=== PATIENT | female | born 1950 | race Caucasian/White ===

== ENCOUNTER 2016-05-14 08:41 | Inpatient (IN) | payer MEDICARE ==
[2016-05-14] MEDS ORDERED: VANCOMYCIN HCL INJ 1000 MG VIAL IV ONE (09:20)
[2016-05-14] MEDS ORDERED: PIPERACILLIN/TAZOBACTAM 3.375 GM VIAL IV ONE (09:20)
[2016-05-14 09:29] LABS: ABSOLUTE BASOPHILS # (AUTO) 0.1 10^3/uL (0.0-0.2); ABSOLUTE EOSINOPHILS # (AUTO) 0.1 10^3/uL (0.0-0.6); ABSOLUTE LYMPHOCYTES (AUTO) 1.5 10^3/uL (0.5-4.7); ABSOLUTE MONOCYTES (AUTO) 1.4 10^3/uL (0.1-1.4); ABSOLUTE NEUT (AUTO) 11.6 10^3/uL (1.7-8.2); BASOPHILS % (AUTO) 0.5 % (0-2); EOSINOPHILS % (AUTO) 0.8 % (0-6); HEMATOCRIT 32.5 % (36.0-47.0); HEMOGLOBIN 10.5 g/dL (12.0-15.5); LYMPHOCYTES % (AUTO) 10.2 % (13-45); MEAN CORPUSCULAR HEMOGLOBIN 27.1 pg (27.0-33.4); MEAN CORPUSCULAR HGB CONC 32.3 g/dL (32.0-36.0); MEAN CORPUSCULAR VOLUME 84 fl (80-97); MONOCYTES % (AUTO) 9.4 % (3-13); RED BLOOD COUNT 3.87 10^6/uL (3.72-5.28); RED CELL DISTRIBUTION WIDTH 15.6 % (11.5-14.0); SEGMENTED NEUTROPHILS % (AUTO) 79.1 % (42-78); WHITE BLOOD COUNT 14.6 10^3/uL (4.0-10.5)
[2016-05-14 09:38] LABS: ALANINE AMINOTRANSFERASE 34 U/L (9-52); ALBUMIN 3.7 g/dL (3.5-5.0); ALKALINE PHOSPHATASE 164 U/L (38-126); ANION GAP 11 (5-19); ASPARTATE AMINO TRANSFERASE 68 U/L (14-36); BILIRUBIN,TOTAL 0.8 mg/dL (0.2-1.3); BLOOD UREA NITROGEN 16 mg/dL (7-20); CALCIUM 9.5 mg/dL (8.4-10.2); CARBON DIOXIDE 27 mmol/L (22-30); CHLORIDE 101 mmol/L (98-107); CREATINE KINASE 49 U/L (30-135); CREATININE RESULT 0.74 mg/dL (0.52-1.25); GLUCOSE 110 mg/dL (75-110); POTASSIUM 3.2 mmol/L (3.6-5.0); SODIUM 139.4 mmol/L (137-145); TOTAL PROTEIN 7.1 g/dL (6.3-8.2)
[2016-05-14] MEDS: NORMAL SALINE 1000 ML 1,000 ML IV PRN ×2 (09:49→11:01)
[2016-05-14 09:51] LABS: CREATINE KINASE MB < 0.22 ng/mL (<4.55); TROPONIN I < 0.012 ng/mL
--- NOTE | 2016-05-14 11:05 | ER Document Report ---
[id number] WEAKNESS Mode of Arrival: Medic Information source: Patient Notes: 66-year-old female presents with three-day duration of abdominal pain fevers and chills. Patient denies any shortness breath of to breathing TRAVEL OUTSIDE OF THE [place] IN LAST 30 DAYS: No - HPI Onset: Other - 3-4 day duration Onset/Duration: Persistent, Worse Quality of pain: Achy Severity: Mild Pain Level: 1 Associated symptoms: Other Exacerbated by: Denies Relieved by: Denies Similar symptoms previously: No Recently seen / treated by doctor: No - Related Data Allergies/Adverse Reactions: Penicillins Allergy (Verified 05/14/16 09:04) Past Medical History - Social History Smoking Status: Never Smoker Cigarette use (# per day): No Chew tobacco use (# tins/day): No Smoking Education Provided: No Family History: CAD, Other - Vascular disease, Alzheimer's - Past Medical History Cardiac Medical History: Reports: Hx Hypercholesterolemia, Hx Hypertension, Hx Peripheral Vascular Disease Neurological Medical History: Reports: Hx Cerebrovascular Accident, Hx Seizures - 1 seizure after one of her strokes approximately 2 years ago. None since. Psychiatric Medical History: Denies: Hx Depression Past Surgical History: Reports: Hx Abdominal Surgery - hernia repair, Hx Orthopedic Surgery - Carpal tunnel surgery - Immunizations Hx Diphtheria, Pertussis, Tetanus Vaccination: No Review of Systems - Review of Systems Notes: REVIEW OF SYSTEMS: CONSTITUTIONAL : Denies fever, chills, or sweats. Denies recent illness. EENT: Denies eye, ear, throat, or mouth pain or symptoms. Denies nasal or sinus congestion or discharge. Denies throat, tongue, or mouth swelling or difficulty swallowing. CARDIOVASCULAR: Denies chest pain. Denies palpitations or racing or irregular heart beat. Denies ankle edema. RESPIRATORY: Denies cough, cold, or chest congestion. Denies shortness of breath, difficulty breathing, or wheezing. GASTROINTESTINAL: Admits to abdominal pain GENITOURINARY: Denies difficulty urinating, painful urination, burning, frequency, blood in urine, or discharge. MUSCULOSKELETAL: Denies back or neck pain or stiffness. Denies joint pain or swelling. SKIN: Denies rash, lesions or sores. HEMATOLOGIC : Denies easy bruising or bleeding. LYMPHATIC: Denies swollen, enlarged glands. NEUROLOGICAL: Denies confusion or altered mental status. Denies passing out or loss of consciousness. Denies dizziness or lightheadedness. Denies headache. Denies weakness or paralysis or loss of use of either side. Denies problems with gait or speech. Denies sensory loss, numbness, or tingling. Denies seizures. PSYCHIATRIC: Denies anxiety or stress. Denies depression, suicidal ideation, or homicidal ideation. ALL OTHER SYSTEMS REVIEWED AND NEGATIVE. Dictation was performed using [employer] voice recognition software PHYSICAL EXAMINATION: GENERAL: Well-appearing, well-nourished and in no acute distress. HEAD: Atraumatic, normocephalic. EYES: Pupils equal round and reactive to light, extraocular movements intact, sclera anicteric, conjunctiva are normal. ENT: Nares patent, oropharynx clear without exudates. Moist mucous membranes. NECK: Normal range of motion, supple without lymphadenopathy LUNGS: Breath sounds clear to auscultation bilaterally and equal. No wheezes rales or rhonchi. HEART: Regular rate and rhythm without murmurs ABDOMEN: Midline surgical incision noted erythematous with fluctuance measuring 6 x 4 cm tender to palpation no drainage Musculoskeletal: Normal range of motion, no pitting or edema. No cyanosis. NEUROLOGICAL: Cranial nerves grossly intact. Normal speech, normal gait. Normal sensory, motor exams PSYCH: Normal mood, normal affect. SKIN: Midline incision with erythema Physical Exam - Vital signs Vitals: Temp 98.5 F 05/14/16 09:02 Course - Re-evaluation Re-evalutation: 05/14/16 11:10 dr amos consulted for intra-abdominal abscess 05/14/16 11:55 Dr amos will admit for intrabdominal abscess, iv fluids and antibiotics already given CT is consistent with 2 separate abscesses appears more superficial one deep 05/14/16 16:07 - Vital Signs Vital signs: Temp Pulse Resp BP Pulse Ox 97.9 F 90 14 96/42 L 97 05/14/16 15:18 05/14/16 15:18 05/14/16 15:18 05/14/16 15:18 05/14/16 15:18 - Laboratory Result Diagrams: 05/14/16 08:45 05/14/16 08:45 Laboratory results interpreted by me: 05/14/16 05/14/16 05/14/16 08:45 08:45 12:00 WBC 14.6 H Hgb 10.5 L Hct 32.5 L RDW 15.6 H Seg Neutrophils % 79.1 H Lymphocytes % 10.2 L Absolute Neutrophils 11.6 H Potassium 3.2 L AST 68 H Alkaline Phosphatase 164 H Urine Blood SMALL H Ur Leukocyte Esterase SMALL H - Diagnostic Test Radiology reviewed: Image reviewed, Reports reviewed Discharge - Discharge Clinical Impression: Intra-abdominal abscess, Speech and language deficit, late effect of cerebrovascular disease Abdominal pain Qualifiers: Abdominal location: epigastric Qualified Code(s): R10.13 - Epigastric pain Sepsis Qualifiers: Sepsis type: sepsis due to unspecified organism Qualified Code(s): A41.9 - Sepsis, unspecified organism Condition: Stable Disposition: ADMITTED INPATIENT Admitting Provider: Surgicalist Unit Admitted: Surgical Floor
[2016-05-14] MEDS ORDERED: MORPHINE SULFATE 10 MG/ML INJ IV ONE (11:10)
[2016-05-14] MEDS ORDERED: BUPIVACAINE HCL 0.25 % INJ/PF (2.5 MG/1 ML) 30 ML VIAL ONE (12:08)
--- NOTE | 2016-05-14 12:19 | PDOC H&P ---
History of Present Illness Admission Date/PCP: WILLY NEVAREZ MD History of Present Illness: MILY GONZALEZ is a 66 year old female Status post gastric ulcer perforation in the February of last year managed with Mian patch and drainage. Patient apparently did well up until several days ago when she began to have diminished appetite and some generalized malaise along with the upper abdominal pain. No nausea and no fever. Patient has not had a upper scope since her surgery. 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 Loss of her vision on the right side. She still has some expressive aphasia. Neurological Medical History: Reports: Seizures - 1 seizure after one of her strokes approximately 2 years ago. None since. GI Medical History: Reports: Other - Perforated gastric ulcer in February of last . Status post Mian patch and drainage. Psychiatric Medical History: Denies: Depression Past Surgical History Past Surgical History: Reports: Orthopedic Surgery - Carpal tunnel surgery, Other - Mian patch and the drainage for gastric ulcer perforation in 02/2016 Social History Information Source: Patient Smoking Status: Never Smoker Frequency of Alcohol Use: Rare Hx Recreational Drug Use: No Drugs: None Hx Prescription Drug Abuse: No Family History Family History: CAD, Other - Vascular disease, Alzheimer's Parental Family History Reviewed: No Children Family History Reviewed: No Sibling(s) Family History Reviewed.: No Medication/Allergy Home Medications: Amantadine HCl [Amantadine] 100 mg PO BID 01/05/15 Aspirin [Aspirin 81 mg Chewable Tablet] 81 mg PO DAILY 01/05/15 Atorvastatin Calcium [Lipitor 80 mg Tablet] 80 mg PO QHS 01/05/15 Folic Acid/Multivit-Minerals [One Daily Gummy Vites Gummie] 2 tab PO DAILY 01/05 Trazodone HCl [Desyrel 50 mg Tablet] 50 mg PO QHS 01/05/15 Acetaminophen [Tylenol 325 mg Tablet] 650 mg PO Q4HP PRN tablet 03/06/16 Docusate Sodium [Colace 100 mg Capsule] 100 mg PO BID capsule 03/06/16 Doxycycline Hyclate [Vibramycin 100 mg Tablet] 100 mg PO Q12 #20 tablet Lansoprazole [Prevacid 30 mg Odt Tablet] 30 mg PO BID@0600,1700 tab. 05/21 Levetiracetam [Keppra 500 mg Tablet] 500 mg PO Q12 tablet 03/06/16 Mirtazapine [Remeron 15 mg Tablet] 7.5 mg PO QHS tablet 03/06/16 Oxycodone HCl/Acetaminophen [Percocet 5-325 mg Tablet] 2 tab PO Q4HP PRN #10 tablet 03/06/16 Risperidone [Risperdal 0.25 mg Tablet] 0.5 mg PO QHS tablet 03/06/16 Zolpidem Tartrate [Ambien 5 mg Tablet] 5 mg PO QHS #10 tablet 03/06/16 Allergies/Adverse Reactions: Penicillins Allergy (Verified 05/14/16 09:04) Physical Exam Vital Signs: Temp Pulse Resp BP Pulse Ox 98.5 F 17 116/65 97 05/14/16 09:02 05/14/16 11:01 05/14/16 11:01 05/14/16 11:01 Intake & Output 05/13/16 05/14/16 05/15/16 06:59 06:59 06:59 Weight 68 kg General appearance: PRESENT: other - Appears ill but not toxic. Neck exam: PRESENT: other - Supple with no abnormal masses Respiratory exam: PRESENT: clear to auscultation caitlin Cardiovascular exam: PRESENT: RRR GI/Abdominal exam: PRESENT: other - Firm throughout with focal tenderness at the mid upper abdomen with subtle erythema and induration. Her midline wound has completely healed. No drainage. Neurological exam: PRESENT: alert, awake, oriented to situation, other - Mild expressive aphasia but patient still able to provide an excellent history. Dense right body hemiparesis. Psychiatric exam: PRESENT: appropriate affect Skin exam: PRESENT: warm Results Laboratory Results: 05/14/16 08:45 05/14/16 08:45 05/14/16 05/14/16 05/14/16 08:45 08:45 09:30 WBC 14.6 H RBC 3.87 Hgb 10.5 L Hct 32.5 L MCV 84 MCH 27.1 MCHC 32.3 RDW 15.6 H Plt Count 331 Seg Neutrophils % 79.1 H Lymphocytes % 10.2 L Monocytes % 9.4 Eosinophils % 0.8 Basophils % 0.5 Absolute Neutrophils 11.6 H Absolute Lymphocytes 1.5 Absolute Monocytes 1.4 Absolute Eosinophils 0.1 Absolute Basophils 0.1 Sodium 139.4 Potassium 3.2 L Chloride 101 Carbon Dioxide 27 Anion Gap 11 BUN 16 Creatinine 0.74 Est GFR ( Amer) > 60 Est GFR (Non-Af Amer) > 60 Glucose 110 Lactic Acid 0.8 Calcium 9.5 Total Bilirubin 0.8 AST 68 H ALT 34 Alkaline Phosphatase 164 H Total Protein 7.1 Albumin 3.7 05/14/16 05/14/16 08:45 08:45 Creatine Kinase 49 CK-MB (CK-2) < 0.22 Troponin I < 0.012 NT-Pro-B Natriuret Pep 132 Impressions: Abdomen/Pelvis CT 05/14/16 09:20 IMPRESSION: 1. Bilobed anterior abdominal wall fluid collections which is within the superficial soft tissues measuring 2.9 x 3.2 cm the deeper fluid collection in the intra- abdominal cavity along the anterior surface of the stomach measures 3.7 x 2.1 cm in size. There is inflammatory fat stranding associated with both fluid collections. 2. Scattered fibrofatty and calcific atheromatous disease of the aorta and its branches possible 50% +narrowing at the origin left main renal artery of unknown clinical significance. Assessment & Plan - Diagnosis (1) Abdominal wall abscess at site of surgical wound Is this a current diagnosis for this admission?: YesPlan: CT scan demonstrates evidence of the abdominal wound abscess that may have arisen from a sub-fascial abscess. I will plan wound exploration. If the drainage is seen coming up from beneath the fascia I will make this fascial opening larger to allow drainage. I have discussed with the patient the nature of the surgery and the risk and benefits including risk of bleeding infection adjacent organ injury as well as the most likely possibility of the hernia formation.
[2016-05-14 12:21] LABS: APPEARANCE,URINE CLEAR; BILIRUBIN,URINE NEGATIVE (NEGATIVE); GLUCOSE, URINE NEGATIVE (NEGATIVE); KETONES,URINE NEGATIVE (NEGATIVE); LEUKOCYTE ESTERASE,URINE SMALL (NEGATIVE); NITRITE,URINE NEGATIVE (NEGATIVE); PROTEIN,URINE NEGATIVE (NEGATIVE); URINE SPECIFIC GRAVITY 1.054; UROBILINOGEN,URINE NEGATIVE mg/dL (<2.0)
[2016-05-14] MEDS ORDERED: MIDAZOLAM 2 MG/2 ML INJ ONE (12:26)
[2016-05-14] MEDS ORDERED: FENTANYL CITRATE INJ/PF 250 MCG/5 ML AMPULE ONE (12:26)
[2016-05-14] MEDS ORDERED: MORPHINE SULFATE 10 MG/ML INJ ONE (12:27)
[2016-05-14] MEDS ORDERED: NORMAL SALINE 1000 ML 1,000 ML IV PRN (13:39)
[2016-05-14] MEDS ORDERED: ONDANSETRON HCL INJ/PF 4 MG/2 ML SDV IV PRN (13:39)
--- NOTE | 2016-05-14 13:51 | Operative Report ---
Operative Report DATE OF SURGERY: 05/14/16 PREOPERATIVE DIAGNOSIS: Abdominal wall abscess POSTOPERATIVE DIAGNOSIS: Abdominal wall and intraperitoneal abscess OPERATION: Drainage of abdominal wall and intraperitoneal abscess SURGEON: IRIS JOHN ANESTHESIA: GA TISSUE REMOVED OR ALTERED: Pus sent for Gram stain and culture COMPLICATIONS: None ESTIMATED BLOOD LOSS: minimal INTRAOPERATIVE FINDINGS: About a the 5 x 3 cm abscess cavity in the subcutaneous tissue in the mid upper abdomen connecting to a 3 cm abscess cavity beneath the fascia with a 3 mm fascial opening PROCEDURE: Informed consent was obtained patient was brought to the operating room placed operating table supine position after satisfactory induction of general anesthesia patient's abdomen was prepped and draped in usual sterile fashion overlying the region of erythema and induration at the mid upper abdomen a 18- gauge needle was placed aspirating copious amount of foul-smelling pus. The wound was opened with a scalpel followed by cautery entering approximately 5 x 3 cm abscess cavity in the subcutaneous tissue. Once the pus was evacuated I saw a small opening in the fascia measuring about 3 cm question measuring about 3 mm in size. There was a loose suture at this area which was removed. this fascial defect was widened to about a centimeter allowing placement of the suction tip probing gently with the suction tip revealed a approximately 3 cm abscess cavity. No bilious drainage was seen. the subcutaneous abscess and the deeper abscess was irrigated and irrigant aspirated out. hemostasis appeared to be good. The wound was then packed with the gauze. Patient tolerated procedure well with no apparent complications.
[2016-05-14] MEDS ORDERED: PANTOPRAZOLE SODIUM 40 MG VIAL IV ONE ×2 (14:45→18:45)
[2016-05-14] MEDS ORDERED: ENOXAPARIN SODIUM INJ 40 MG/0.4 ML DISP.SYRIN SUBCUT ONE ×2 (14:45→18:45)
[2016-05-14] MEDS ORDERED: SUCCINYLCHOLINE CHLORIDE INJ 200 MG/10 ML VIAL ONE (14:52)
[2016-05-14] MEDS ORDERED: ROCURONIUM BROMIDE INJ 50 MG/5 ML VIAL IV ONE (14:52)
[2016-05-14] MEDS ORDERED: NEOSTIGMINE METHYLSULFATE 10 MG/10 ML VIAL ONE (14:52)
[2016-05-14] MEDS ORDERED: GLYCOPYRROLATE INJ 0.4 MG/2 ML VIAL ONE (14:52)
[2016-05-14] MEDS ORDERED: ONDANSETRON HCL INJ/PF 4 MG/2 ML SDV ONE (14:52)
[2016-05-14] MEDS ORDERED: [UNRECOGNIZED DRUG - OTHER] PO (15:00)
[2016-05-14] MEDS ORDERED: MULTIVIT MINERALS PO (15:00)
[2016-05-14] MEDS ORDERED: FOLIC ACID PO (15:00)
[2016-05-14] MEDS ORDERED: INFLUENZA ADLT QUAD (36MOS+) 2016-17 VAC 0.5 ML SYR IM PRN (15:59)
[2016-05-14] MEDS ORDERED: LANSOPRAZOLE 30 MG TAB.RAP.DR PO SCH (17:00)
[2016-05-14] MEDS: DOCUSATE SODIUM 100 MG CAPSULE PO SCH (18:33)
[2016-05-14] MEDS: ATORVASTATIN CALCIUM 80 MG TABLET PO SCH (21:37)
[2016-05-14] MEDS: MIRTAZAPINE 15 MG TABLET PO SCH (21:37)
[2016-05-14] MEDS: LEVETIRACETAM 500 MG TABLET PO SCH (21:37)
[2016-05-14] MEDS ORDERED: PANTOPRAZOLE SODIUM 40 MG VIAL IV SCH (22:00)
[2016-05-15] MEDS: PANTOPRAZOLE SODIUM 40 MG VIAL IV SCH ×2 (06:27→17:35)
--- NOTE | 2016-05-15 09:12 | PDOC PROGRESS REPORT ---
Subjective Subjective:: abdominal pain. no nausea. Physical Exam Vital Signs: Temp Pulse Resp BP Pulse Ox 98.8 F 76 15 127/59 H 94 05/15/16 07:48 05/15/16 07:48 05/15/16 07:48 05/15/16 07:48 05/15/16 08:56 Pulse Oximeter Continuous Start: 05/14/16 14: 38 Freq: RTQ4 Status: Active Document 05/15/16 08:56 [employer] (Rec: 05/15/16 08:59 [employer] [email or web address]) Pulse Oximetry Assessment Oxygen Saturation (92-100) 94 Oxygen Flow Rate (L/min) 2 Oxygen Delivery Method Nasal Cannula Fraction of Inspired Oxygen (FIO2) 28 Equipment Usage Equipment in Use Continuous SpO2 Machine # N 2 Intake & Output 05/14/16 05/15/16 05/16/16 06:59 06:59 06:59 Intake Total 2377 Output Total 1385 Balance 992 Weight 68 kg GI/Abdominal exam: PRESENT: ascites, diminished bowel sounds - epigastric area open wound - purulent drainage with sucutaneous necrotic tissue., distended, firm, guarding, hernia, hyperactive bowel sounds, hypoactive bowel sounds, mass , Lott's sign, normal bowel sounds, organolmegaly, rebound, rigid, soft, tenderness, other Results Impressions: Abdomen/Pelvis CT 05/14/16 09:20 IMPRESSION: 1. Bilobed anterior abdominal wall fluid collections which is within the superficial soft tissues measuring 2.9 x 3.2 cm the deeper fluid collection in the intra- abdominal cavity along the anterior surface of the stomach measures 3.7 x 2.1 cm in size. There is inflammatory fat stranding associated with both fluid collections. 2. Scattered fibrofatty and calcific atheromatous disease of the aorta and its branches possible 50% +narrowing at the origin left main renal artery of unknown clinical significance. Assessment & Plan - Plan Summary Plan Summary: Abdomen - mid epigatric abdominal wound - subcutaneous necrotic tissue - excised sharply and wound copiously irrigated until oliver. Dressings applied Wet to dry dressings Q shift.
[2016-05-15] MEDS: LEVETIRACETAM 500 MG TABLET PO SCH ×2 (11:18→21:15)
[2016-05-15] MEDS: ASPIRIN 81 MG TABLET, CHEWABLE PO SCH (11:18)
[2016-05-15] MEDS: MULTIVITAMIN TABLET PO SCH (11:18)
[2016-05-15] MEDS: DOCUSATE SODIUM 100 MG CAPSULE PO SCH ×2 (11:18→17:36)
[2016-05-15] MEDS: MORPHINE SULFATE 10 MG/ML INJ IV PRN (11:18)
[2016-05-15] MEDS: ENOXAPARIN SODIUM INJ 40 MG/0.4 ML DISP.SYRIN SUBCUT SCH (11:19)
[2016-05-15] MEDS: MIRTAZAPINE 15 MG TABLET PO SCH (21:17)
[2016-05-15] MEDS: ATORVASTATIN CALCIUM 80 MG TABLET PO SCH (21:17)
[2016-05-16] MEDS: PANTOPRAZOLE SODIUM 40 MG VIAL IV SCH ×2 (06:13→17:42)
[2016-05-16] MEDS: ASPIRIN 81 MG TABLET, CHEWABLE PO SCH (10:14)
[2016-05-16] MEDS: DOCUSATE SODIUM 100 MG CAPSULE PO SCH ×2 (10:14→17:46)
[2016-05-16] MEDS: MULTIVITAMIN TABLET PO SCH (10:14)
[2016-05-16] MEDS: LEVETIRACETAM 500 MG TABLET PO SCH ×2 (10:14→22:44)
[2016-05-16] MEDS: ENOXAPARIN SODIUM INJ 40 MG/0.4 ML DISP.SYRIN SUBCUT SCH (10:15)
--- NOTE | 2016-05-16 15:49 | PDOC PROGRESS REPORT ---
Subjective Progress Note for:: 05/16/16 Subjective:: pain moderate c/o lack of appetite Physical Exam Vital Signs: Temp Pulse Resp BP Pulse Ox 98.9 F 74 17 150/69 H 100 05/16/16 11:22 05/16/16 11:22 05/16/16 11:22 05/16/16 11:22 05/16/16 11:22 Pulse Oximeter Continuous Start: 05/14/16 14: 38 Freq: RTQ4 Status: Active Document 05/16/16 12:45 HCR (Rec: 05/16/16 14:12 HCR [id number]) Pulse Oximetry Assessment Equipment Usage Equipment Standby Continuous SpO2 Machine # 2 Intake & Output 05/15/16 05/16/16 05/17/16 06:59 06:59 06:59 Intake Total 2377 1120 Output Total 1385 1300 600 Balance 992 -180 -600 Weight 68 kg 68 kg GI/Abdominal exam: PRESENT: ascites, diminished bowel sounds - upper abdomen - 3 -4 cm open wound, still has some purulent drainage there is some fascial dehiscence , no evisceration. Subcutaneous necrotic tissue present., distended , firm, guarding, hernia, hyperactive bowel sounds, hypoactive bowel sounds, mass, Lott's sign, normal bowel sounds, organolmegaly, rebound, rigid, soft, tenderness, other Results Impressions: Abdomen/Pelvis CT 05/14/16 09:20 IMPRESSION: 1. Bilobed anterior abdominal wall fluid collections which is within the superficial soft tissues measuring 2.9 x 3.2 cm the deeper fluid collection in the intra- abdominal cavity along the anterior surface of the stomach measures 3.7 x 2.1 cm in size. There is inflammatory fat stranding associated with both fluid collections. 2. Scattered fibrofatty and calcific atheromatous disease of the aorta and its branches possible 50% +narrowing at the origin left main renal artery of unknown clinical significance. Assessment & Plan - Diagnosis (1) Abdominal wall abscess at site of surgical wound Is this a current diagnosis for this admission?: Yes - Plan Summary Plan Summary: Still has purulent draianage and necrotic soft tissue wound drained, necrotic subcutaneous soft tissue - sharp excisional debridement performed in subcutaneous level. Plan CT scan abdomen and pelvis to r/o intra-abdominal abscess.
[2016-05-16] MEDS: HYDROMORPHONE HCL INJ/PF 2 MG/ML AMPULE IV PRN (17:45)
[2016-05-16] MEDS: MORPHINE SULFATE 10 MG/ML INJ IV PRN (20:48)
[2016-05-16] MEDS: ATORVASTATIN CALCIUM 80 MG TABLET PO SCH (22:44)
[2016-05-16] MEDS: MIRTAZAPINE 15 MG TABLET PO SCH (22:44)
[2016-05-17] MEDS: MORPHINE SULFATE 10 MG/ML INJ IV PRN (03:55)
[2016-05-17] MEDS: PANTOPRAZOLE SODIUM 40 MG VIAL IV SCH (05:53)
[2016-05-17] MEDS: ENOXAPARIN SODIUM INJ 40 MG/0.4 ML DISP.SYRIN SUBCUT SCH (07:58)
[2016-05-17] MEDS: HYDROMORPHONE HCL INJ/PF 2 MG/ML AMPULE IV PRN (10:47)
[2016-05-17] MEDS: DOCUSATE SODIUM 100 MG CAPSULE PO SCH (10:47)
[2016-05-17] MEDS: MULTIVITAMIN TABLET PO SCH (10:47)
[2016-05-17] MEDS: LEVETIRACETAM 500 MG TABLET PO SCH (10:47)
[2016-05-17] MEDS: ASPIRIN 81 MG TABLET, CHEWABLE PO SCH (10:49)
[2016-05-17 15:27] VITALS: BP 141/69
[2016-05-17] MEDS ORDERED: HYDROMORPHONE HCL 2 MG TABLET ONE (17:00)
--- NOTE | 2016-05-17 17:08 | DISCHARGE SUMMARY E ---
Discharge Summary NAME: MILY GONZALEZ : 1950 AGE: 66Y ADMITTED: 05/14/2016 DISCHARGED: ADMITTING DIAGNOSIS: Abscess abdominal wall. She had apparently peptic ulcer perforation and had a surgery done a few weeks ago, presented to the Emergency Room with abdominal wall swelling, erythema, induration, a postoperative abdominal wall wound infection. It was drained by Dr. Lazaro in the operating room. Abdominal wound for the last three days she still has some drainage so I kept her in the hospital with daily debridement and wound washing. Finally, the wound is much ceiling cleaner. I did a CT scan yesterday to make sure there was no intra-abdominal abscess or residual abscess which was negative for any residual intra-abdominal abscess. The wound is clean so she is being discharged home with [place] for the pain with followup in the outpatient Surgery Clinic in 2 weeks. Wound care instructions were given to the patient and family with wet-to-dry dressings daily. DICTATING PHYSICIAN: YUNIOR BOWEN M.D. [id number] PHY#: [id number] ID: [id number] JOB#: [id number] ACCT: [id number] cc:Nikki CISNEROS M.D. CHRISTOPHER SUHR, M.D. >
== END 2016-05-17 17:29 | disposition home health service (06) | DRG 862 ==
LOC: ER 08:41 → EH 12:38 → UNDOADMOB 12:38 → INTOOBSV 12:38 → EH 13:39 → OBSVTOIN 13:39 → 4S 15:25 → EH 15:25
PROVIDERS: ADMIT Surgery; ATTEND Surgery
PROC: 0J9B00Z Drainage of Perineum Subcutaneous Tissue and Fascia with Drainage Device, Open Approach (ICD-10-PCS; principal; 2016-05-14 12:45)
DX: T81.4XXA Infection following a procedure, initial encounter (principal); K65.1 Peritoneal abscess; L02.211 Cutaneous abscess of abdominal wall; I69.351 Hemiplegia and hemiparesis following cerebral infarction affecting right dominant side; Y83.8 Other surgical procedures as the cause of abnormal reaction of the patient, or of later complication, without mention of misadventure at the time of the procedure; Y73.3 Surgical instruments, materials and gastroenterology and urology devices (including sutures) associated with adverse incidents; I10 Essential (primary) hypertension; E78.5 Hyperlipidemia, unspecified; I73.9 Peripheral vascular disease, unspecified; I69.320 Aphasia following cerebral infarction; I69.398 Other sequelae of cerebral infarction; H54.61 Unqualified visual loss, right eye, normal vision left eye; I25.10 Atherosclerotic heart disease of native coronary artery without angina pectoris; Z87.891 Personal history of nicotine dependence; Z79.82 Long term (current) use of aspirin; Z79.899 Other long term (current) drug therapy; Z88.0 Allergy status to penicillin; Z82.49 Family history of ischemic heart disease and other diseases of the circulatory system
CPT/HCPCS: 36415; 700; 74177; 80053; 81001; 82550; 82553; 83605; 83880; 84484; 85025; 87070; 87075; 87077; 87205; 94762; 94799; 96361; 96365; 96375; 99285; G0378; J0330; J1170; J1650; J2250; J2270; J2405; J2543; J3010; J3370; J3490; J7030; S0164

== ENCOUNTER → 2016-06-30 | Outpatient (CLI) | payer MEDICARE ==
--- NOTE | 2016-06-30 14:43 | XCELERA REPORT ---
[address] [address] Lower Extremity Arterial Evaluation Name: MILY GONZALEZ Age: 66 yrs Gender: Female : 1950 Patient Status: Outpatient Patient Location: Study Date: 06/30/2016 01:10 PM Procedure: A color flow and duplex scan of the lower extremity arteries was performed bilaterally with velocity and waveform anaylsis. Ankle brachial indicies performed. Reason For Study: PVD Ordering Physician: WILLY NEVAREZ Performed By: Shaji Alexander Measurements and Calculations Right Left [employer] C[employer] INSULATOR PSV 153.2 142.2 cm/sec Prox PFA PSV -84.4 -76.1 cm/sec Dist SFA PSV -73.8 -105.0 cm/sec Dist Pop A PSV 91.8 85.6 cm/sec Prox TRE PSV 63.2 cm/sec Dist TRE PSV 62.2 58.0 cm/sec Dist PAID SEARCH ANALYST PSV 84.0 100.6 cm/sec Jeancarlos Pedis PSV 41.3 91.0 cm/sec Right Side Arterial Evaluation Normal velocity, waveform and triphasic flow are present, from the Common Femoral artery to the Femoral, biphasic with well preserved velocity to the infrageniculate vessels. The ankle-brachial index is 1.11. 0-19 % stenosis is noted at the Femoral artery. Left Side Arterial Evaluation Normal velocity, waveform and triphasic flow are present, from the Common Femoral artery to the Popliteal, biphasic with well preserved velocity to the infrageniculate vessels. Biphasic in the Deep Femoral also. The ankle-brachial index is 1.10. 0-19 % stenosis is noted at the infrageniculate vessels. Interpretation Summary Mild hemodynamically significant lesions in the bilateral lower extremities, on duplex imaging, at rest. : WILLY NEVAREZ > Jarod Liu [facility] HAYES HOSPITALAndrea
== END ==
LOC: SP 12:51
PROVIDERS: ATTEND Family Medicine
DX: I73.9 Peripheral vascular disease, unspecified (principal)
CPT/HCPCS: 93925

== ENCOUNTER 2016-07-09 17:52 | Emergency (ER) | payer MEDICARE ==
--- NOTE | 2016-07-09 18:25 | ER Document Report ---
ED Medical Screen (RME) - General Chief Complaint: Abdominal Pain Stated Complaint: ABDOMINAL PAIN Notes: Patient is complaining of pain in her abdomen. She says it feels like it did when she had ulcers. She had abdominal surgery here 3 months ago. Has had continuing abdominal pain and reduced appetite. Patient has a history of strokes 3 moving her with right-sided paralysis. Also has limited conversation ability. TRAVEL OUTSIDE OF THE [place] IN LAST 30 DAYS: No - Related Data Allergies/Adverse Reactions: Penicillins Allergy (Verified 07/09/16 18:11) Past Medical History - Past Medical History Cardiac Medical History: Reports: Hx Hypercholesterolemia, Hx Hypertension, Hx Peripheral Vascular Disease Denies: Hx Coronary Artery Disease, Hx Heart Attack Pulmonary Medical History: Reports: Hx Pneumonia Denies: Hx Asthma, Hx Bronchitis, Hx COPD Neurological Medical History: Reports: Hx Cerebrovascular Accident - x3 no use of right side, difficulty speaking, Hx Seizures Renal/ Medical History: Denies: Hx Peritoneal Dialysis Musculoskeltal Medical History: Reports Hx Arthritis Psychiatric Medical History: Denies: Hx Depression Past Surgical History: Reports: Hx Abdominal Surgery - hernia repair, Hx Orthopedic Surgery - Carpal tunnel surgery, Other - Mian patch and the drainage for gastric ulcer perforation in 02/2016 - Immunizations Hx Diphtheria, Pertussis, Tetanus Vaccination: No Physical Exam - Vital signs Vitals: Temp Pulse Resp BP 98.4 F 91 21 H 143/81 H 07/09/16 17:57 07/09/16 17:57 07/09/16 17:57 07/09/16 17:57 Course - Vital Signs Vital signs: Temp Pulse Resp BP Pulse Ox 98.4 F 91 21 H 143/81 H 07/09/16 17:57 07/09/16 17:57 07/09/16 17:57 07/09/16 17:57
[2016-07-09] MEDS ORDERED: MORPHINE SULFATE 10 MG/ML INJ IV PRN (18:54)
--- NOTE | 2016-07-09 18:56 | ER Document Report ---
ED General - General Chief Complaint: Abdominal Pain Stated Complaint: ABDOMINAL PAIN Notes: Patient is a 66-year-old female with past medical history of gastric perforation status post repair with complication of that repair of intra- abdominal abscesses which were surgically managed several weeks ago who presents with left lower quadrant and left upper quadrant abdominal pain. Does describe the pain as a dull, constant, aching pain. Nothing improves or worsens the pain. States the pain has been getting progressively worse for the last 2 weeks. She has had some dark stool but denies any catherine melena, hematochezia or hemoptysis. She has not seen her surgeon or primary care doctor regarding today's concerns. She has not had any shortness of breath, chest pain, weakness or numbness. TRAVEL OUTSIDE OF THE [place] IN LAST 30 DAYS: No - Related Data Allergies/Adverse Reactions: Penicillins Allergy (Verified 07/09/16 18:11) Past Medical History - General Information source: Patient - Social History Smoking Status: Never Smoker Frequency of alcohol use: None Drug Abuse: None Lives with: Family Family History: CAD, Other - Vascular disease, Alzheimer's Patient has suicidal ideation: No Patient has homicidal ideation: No - Past Medical History Cardiac Medical History: Reports: Hx Hypercholesterolemia, Hx Hypertension, Hx Peripheral Vascular Disease Denies: Hx Coronary Artery Disease, Hx Heart Attack Pulmonary Medical History: Reports: Hx Pneumonia Denies: Hx Asthma, Hx Bronchitis, Hx COPD Neurological Medical History: Reports: Hx Cerebrovascular Accident - x3 no use of right side, difficulty speaking, Hx Seizures Renal/ Medical History: Denies: Hx Peritoneal Dialysis Musculoskeltal Medical History: Reports Hx Arthritis Psychiatric Medical History: Denies: Hx Depression Past Surgical History: Reports: Hx Abdominal Surgery - hernia repair, Hx Orthopedic Surgery - Carpal tunnel surgery, Other - Mian patch and the drainage for gastric ulcer perforation in 02/2016 - Immunizations Hx Diphtheria, Pertussis, Tetanus Vaccination: No Review of Systems - Review of Systems Notes: Constitutional: Negative for fever. HENT: Negative for sore throat. Eyes: Negative for visual changes. Cardiovascular: Negative for chest pain. Respiratory: Negative for shortness of breath. Gastrointestinal: Positive for abdominal pain, negative for vomiting or diarrhea. Genitourinary: Negative for dysuria. Musculoskeletal: Negative for back pain. Skin: Negative for rash. Neurological: Negative for headaches, weakness or numbness. 10 point ROS negative except as marked above and in HPI. Physical Exam - Vital signs Vitals: Temp Pulse Resp BP 98.4 F 91 21 H 143/81 H 07/09/16 17:57 07/09/16 17:57 07/09/16 17:57 07/09/16 17:57 Interpretation: Hypertensive Notes: PHYSICAL EXAMINATION: GENERAL: Well-appearing, well-nourished and in no acute distress. HEAD: Atraumatic, normocephalic. EYES: Pupils equal round and reactive to light, extraocular movements intact, sclera anicteric, conjunctiva are normal. ENT: nares patent, oropharynx clear without exudates. Moist mucous membranes. NECK: Normal range of motion, supple without lymphadenopathy LUNGS: Breath sounds clear to auscultation bilaterally and equal. No wheezes rales or rhonchi. HEART: Regular rate and rhythm without murmurs ABDOMEN: Soft, left upper quadrant and left lower quadrant pain on palpation, normoactive bowel sounds. No guarding, no rebound. No masses appreciated. Rectal exam: No masses. No gross blood. A slight blackening of the stool is present EXTREMITIES: Normal range of motion, no pitting or edema. No cyanosis. NEUROLOGICAL: No focal neurological deficits. Moves all extremities spontaneously and on command. PSYCH: Normal mood, normal affect. SKIN: Warm, Dry, normal turgor, no rashes or lesions noted. Course - Re-evaluation Re-evalutation: 07/09/16 18:54 Patient presents with left upper and left lower quadrant abdominal pain as well as with melena on exam. No rebound or guarding. Abdominal wall incision is well appearing and does not appear to have a recurrence of infection. Patient states she's had similar symptoms in the past when she had a intra-abdominal abscess after a gastric ulcer perforation surgery in February 2016. She had been doing well with past several weeks after being discharged from the hospital after the intra-abdominal abscess was surgically managed. Will obtain labs, CT of the abdomen and pelvis with contrast to evaluate for recurrence of intra-abdominal abscesses particularly given her localized pain along the left side of her abdomen. 07/09/16 21:52 Patient has returned from CT scan, pain much better control at this point. CT scan does demonstrate some gastric inflammation but no additional acute findings. Stool occult is normal so do not suspect an upper GI bleed at this time. At this time given reassuring abdominal evaluation on reassessment without any remaining focal tenderness, CT scan findings, normal hemoglobin, and patient's ability to tolerate oral intake and believe she is safe for discharge at this time with close outpatient follow-up. - Vital Signs Vital signs: Temp Pulse Resp BP Pulse Ox 97.7 F 76 18 110/72 93 07/09/16 22:24 07/09/16 22:24 07/09/16 22:24 07/09/16 22:24 07/09/16 22:24 - Laboratory Result Diagrams: 07/09/16 19:11 07/09/16 19:11 Laboratory results interpreted by me: 07/09/16 07/09/16 07/09/16 19:11 19:11 21:46 RDW 17.1 H Glucose 120 H Ur Leukocyte Esterase LARGE H - Diagnostic Test Radiology reviewed: Reports reviewed Discharge - Discharge Clinical Impression: Abdominal pain Qualifiers: Abdominal location: epigastric Qualified Code(s): R10.13 - Epigastric pain Condition: Good Disposition: HOME, SELF-CARE Additional Instructions: You have been seen in the Emergency Department (ED) for abdominal pain. Your evaluation did not identify a clear cause of your symptoms but was generally reassuring. Your CT scan shows that your stomach is somewhat inflamed but is otherwise normal. Your stool does not have blood in it. Your labs are otherwise normal. Please follow up with your doctor as soon as possible regarding today's emergent visit and the symptoms that are bothering you. Return to the ED if your abdominal pain worsens or fails to improve, you develop bloody vomiting, bloody diarrhea, you are unable to tolerate fluids due to vomiting, fever greater than 101, or other symptoms that concern you.
[2016-07-09 19:31] LABS: ABSOLUTE BASOPHILS # (AUTO) 0.1 10^3/uL (0.0-0.2); ABSOLUTE EOSINOPHILS # (AUTO) 0.2 10^3/uL (0.0-0.6); ABSOLUTE LYMPHOCYTES (AUTO) 2.6 10^3/uL (0.5-4.7); ABSOLUTE MONOCYTES (AUTO) 0.8 10^3/uL (0.1-1.4); BASOPHILS % (AUTO) 0.8 % (0-2); EOSINOPHILS % (AUTO) 2.2 % (0-6); HEMOGLOBIN 12.6 g/dL (12.0-15.5); HGB HCT DIFFERENCE -0.2; LYMPHOCYTES % (AUTO) 34.1 % (13-45); MEAN CORPUSCULAR HEMOGLOBIN 27.7 pg (27.0-33.4); MEAN CORPUSCULAR HGB CONC 33.1 g/dL (32.0-36.0); MEAN CORPUSCULAR VOLUME 84 fl (80-97); MONOCYTES % (AUTO) 10.1 % (3-13); RED BLOOD COUNT 4.54 10^6/uL (3.72-5.28); RED CELL DISTRIBUTION WIDTH 17.1 % (11.5-14.0); SEGMENTED NEUTROPHILS % (AUTO) 52.8 % (42-78); WHITE BLOOD COUNT 7.6 10^3/uL (4.0-10.5)
[2016-07-09 19:51] LABS: ALANINE AMINOTRANSFERASE 36 U/L (9-52); ALBUMIN 4.3 g/dL (3.5-5.0); ALKALINE PHOSPHATASE 95 U/L (38-126); ANION GAP 14 (5-19); ASPARTATE AMINO TRANSFERASE 31 U/L (14-36); BILIRUBIN,DIRECT 0.3 mg/dL (0.0-0.4); BILIRUBIN,TOTAL 0.4 mg/dL (0.2-1.3); BLOOD UREA NITROGEN 18 mg/dL (7-20); CALCIUM 9.9 mg/dL (8.4-10.2); CARBON DIOXIDE 27 mmol/L (22-30); CHLORIDE 103 mmol/L (98-107); CREATININE RESULT 0.73 mg/dL (0.52-1.25); GLUCOSE 120 mg/dL (75-110); LIPASE 255.8 U/L (23-300); POTASSIUM 3.9 mmol/L (3.6-5.0); SODIUM 143.8 mmol/L (137-145); TOTAL PROTEIN 7.5 g/dL (6.3-8.2)
[2016-07-09] MEDS ORDERED: HYDROCODONE/ACETAMINOPHEN 5-325 MG 6 TAB/DSPK PO PRN (21:55)
[2016-07-09 22:13] LABS: APPEARANCE,URINE SLIGHTLY-CLOUDY; BILIRUBIN,URINE NEGATIVE (NEGATIVE); GLUCOSE, URINE NEGATIVE (NEGATIVE); KETONES,URINE NEGATIVE (NEGATIVE); LEUKOCYTE ESTERASE,URINE LARGE (NEGATIVE); NITRITE,URINE NEGATIVE (NEGATIVE); PROTEIN,URINE NEGATIVE (NEGATIVE); URINE SPECIFIC GRAVITY 1.005; UROBILINOGEN,URINE NEGATIVE mg/dL (<2.0)
[2016-07-09 22:26] VITALS: BP 110/72
== END 2016-07-09 22:26 | disposition home or self-care (01) ==
LOC: ER 17:52
DX: K29.70 Gastritis, unspecified, without bleeding (principal); R10.32 Left lower quadrant pain; R10.12 Left upper quadrant pain; R10.13 Epigastric pain; K92.1 Melena; I10 Essential (primary) hypertension; Z87.11 Personal history of peptic ulcer disease; Z87.19 Personal history of other diseases of the digestive system; Z98.890 Other specified postprocedural states; Z88.0 Allergy status to penicillin
CPT/HCPCS: 99284; 96374; 86900; 86901; 36415; 86850; 83690; 85025; 82272; 80053; 81001; 74177; J2270

== ENCOUNTER → 2016-07-13 | Outpatient (CLI) | payer MEDICARE ==
[2016-07-13 13:01] LABS: ABSOLUTE EOSINOPHILS # (AUTO) 0.1 10^3/uL (0.0-0.6); ABSOLUTE LYMPHOCYTES (AUTO) 2.3 10^3/uL (0.5-4.7); ABSOLUTE MONOCYTES (AUTO) 0.5 10^3/uL (0.1-1.4); ABSOLUTE NEUT (AUTO) 4.1 10^3/uL (1.7-8.2); BASOPHILS % (AUTO) 0.5 % (0-2); EOSINOPHILS % (AUTO) 2.1 % (0-6); HEMATOCRIT 39.2 % (36.0-47.0); HEMOGLOBIN 13.1 g/dL (12.0-15.5); HGB HCT DIFFERENCE 0.1; LYMPHOCYTES % (AUTO) 32.4 % (13-45); MEAN CORPUSCULAR HGB CONC 33.6 g/dL (32.0-36.0); MEAN CORPUSCULAR VOLUME 83 fl (80-97); RED CELL DISTRIBUTION WIDTH 17.5 % (11.5-14.0); WHITE BLOOD COUNT 7.1 10^3/uL (4.0-10.5)
[2016-07-13 13:29] LABS: ALANINE AMINOTRANSFERASE 34 U/L (9-52); ALBUMIN 4.3 g/dL (3.5-5.0); ALKALINE PHOSPHATASE 92 U/L (38-126); ANION GAP 15 (5-19); ASPARTATE AMINO TRANSFERASE 30 U/L (14-36); BILIRUBIN,DIRECT 0.1 mg/dL (0.0-0.4); BILIRUBIN,TOTAL 0.5 mg/dL (0.2-1.3); BLOOD UREA NITROGEN 24 mg/dL (7-20); CARBON DIOXIDE 28 mmol/L (22-30); CHLORIDE 102 mmol/L (98-107); CHOLESTEROL 177.59 mg/dL (0-200); CREATININE RESULT 0.67 mg/dL (0.52-1.25); Direct HDL 40 mg/dL (>40); GLUCOSE 101 mg/dL (75-110); POTASSIUM 4.3 mmol/L (3.6-5.0); SODIUM 144.7 mmol/L (137-145); TRIGLYCERIDES 176 mg/dL (<150)
[2016-07-13 13:41] LABS: DIRECT LDL 80 mg/dL (<100)
[2016-07-13 14:08] LABS: VLDL CHOLESTEROL 35.2 mg/dL (10-31)
== END ==
LOC: OD 11:38
PROVIDERS: ATTEND Family Medicine
DX: Z79.899 Other long term (current) drug therapy (principal); D62 Acute posthemorrhagic anemia; E87.6 Hypokalemia; E78.5 Hyperlipidemia, unspecified
CPT/HCPCS: 36415; 80053; 80061; 82728; 83735; 85025

== ENCOUNTER → 2016-07-28 | Outpatient (CLI) | payer MEDICARE | LOC: SP 12:38 | PROVIDERS: ATTEND Family Medicine | DX: I65.21 Occlusion and stenosis of right carotid artery (principal) | CPT/HCPCS: 93880 ==

== ENCOUNTER 2016-09-23 20:32 | Observation (INO) | payer MEDICARE ==
--- NOTE | 2016-09-23 20:49 | ER Document Report ---
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 Patient is brought into the emergency room with weakness of the right lower extremity weakness which is new as of 1 week ago. Also states she has had right facial numbness Onset of symptoms: One week TRAVEL OUTSIDE OF THE [place] IN LAST 30 DAYS: No - Related Data Allergies/Adverse Reactions: Penicillins Allergy (Verified 07/09/16 18:11) Past Medical History - Past Medical History Cardiac Medical History: Reports: Hx Hypercholesterolemia, Hx Hypertension, Hx Peripheral Vascular Disease Denies: Hx Coronary Artery Disease, Hx Heart Attack Pulmonary Medical History: Reports: Hx Pneumonia Denies: Hx Asthma, Hx Bronchitis, Hx COPD Neurological Medical History: Reports: Hx Cerebrovascular Accident - x3 no use of right side, difficulty speaking, Hx Seizures Renal/ Medical History: Denies: Hx Peritoneal Dialysis Musculoskeltal Medical History: Reports Hx Arthritis Psychiatric Medical History: Denies: Hx Depression Past Surgical History: Reports: Hx Abdominal Surgery - hernia repair, Hx Orthopedic Surgery - Carpal tunnel surgery, Other - Mian patch and the drainage for gastric ulcer perforation in 02/2016 - Immunizations Hx Diphtheria, Pertussis, Tetanus Vaccination: No Physical Exam - Vital signs Vitals: Temp Pulse Resp BP Pulse Ox 98.3 F 77 16 116/76 96 09/23/16 20:38 09/23/16 20:38 09/23/16 20:38 09/23/16 20:38 09/23/16 20:38 Course - Vital Signs Vital signs: Temp Pulse Resp BP Pulse Ox 98.3 F 77 16 116/76 96 09/23/16 20:38 09/23/16 20:38 09/23/16 20:38 09/23/16 20:38 09/23/16 20:38
--- NOTE | 2016-09-23 21:26 | RADIOLOGY REPORT (SQ) ---
EXAM DESCRIPTION: CHEST SINGLE VIEW COMPLETED DATE/TIME: 09/23/2016 8:56 pm REASON FOR STUDY: cva COMPARISON: 02/29/2016 EXAM PARAMETERS: NUMBER OF VIEWS: One view. TECHNIQUE: Single frontal radiographic view of the chest acquired. RADIATION DOSE: NA LIMITATIONS: None. FINDINGS: LUNGS AND PLEURA: Recurrent or persistent left lower lobe airspace disease - subsegmental atelectasis and effusion. Right lung shows minimal basilar interstitial changes. MEDIASTINUM AND HILAR STRUCTURES: Stable. HEART AND VASCULAR STRUCTURES: Stable. BONES: No acute findings. HARDWARE: None in the chest. OTHER: No other significant finding. IMPRESSION: Recurrent or persistent left lower lobe airspace disease - subsegmental atelectasis and effusion. TECHNICAL DOCUMENTATION: JOB ID: [id number]
--- NOTE | 2016-09-23 21:34 | RADIOLOGY REPORT (SQ) ---
EXAM DESCRIPTION: CT HEAD WITHOUT COMPLETED DATE/TIME: 09/23/2016 9:04 pm REASON FOR STUDY: new right lower extremity weakness COMPARISON: 02/18/2016 TECHNIQUE: Axial images acquired through the brain without intravenous contrast. Images reviewed wi th bone, brain and subdural windows. Images stored on PACS. All CT scanners at this facility use dose modulation, iterative reconstruction, and/or weight based d osing when appropriate to reduce radiation dose to as low as reasonably achievable (ALARA). [facility]: Dose Right [facility]: CareDose [facility]: Dose Right [facility]: Teradose 4D [facility]: Smart [employer] Funding Source RADIATION DOSE: Up-to-date CT equipment and radiation dose reduction techniques were employed. CTDIv ol: 64.6 mGy. DLP: 1163 mGy-cm. mGy. LIMITATIONS: None. FINDINGS: VENTRICLES: Normal size and contour. CEREBRUM: No masses. No hemorrhage. No midline shift. Stable old left cerebral ischemic changes. . No evidence for acute infarction. CEREBELLUM: No masses. No hemorrhage. No alteration of density. No evidence for acute infarction. EXTRAAXIAL SPACES: No fluid collections. No masses. ORBITS AND GLOBE: No intra- or extraconal masses. Normal contour of globe without masses. CALVARIUM: No fracture. PARANASAL SINUSES: No fluid or mucosal thickening. SOFT TISSUES: No mass or hematoma. OTHER: No other significant finding. IMPRESSION: Stable old left cerebral ischemic changes. No acute intracranial finding. TECHNICAL DOCUMENTATION: JOB ID: [id number] Quality ID # [id number]: Final reports with documentation of one or more dose reduction techniques (e.g., Au tomated exposure control, adjustment of the mA and/or kV according to patient size, use of iterative reconstruction technique) 2010 [employer]- All Rights Reserved
--- NOTE | 2016-09-23 21:37 | ER Document Report ---
ED Neuro Symptoms/Deficit - General Mode of Arrival: Wheelchair Information source: Patient Notes: Patient is a 66 year old female, with a past medical history including stroke, who presents to the emergency department with her certified genetic counselor complaining of right leg weakness. Patient states the weakness started a week ago and has been worsening, she is currently unable to use her right leg and reports pain in the upper leg. Patient also complains of numbness in the right side of her face onset today. Patient denies chest pain and trouble breathing. Patient has right arm weakness and a speech impairment as a result of her stroke 2.5 year ago. TRAVEL OUTSIDE OF THE [place] IN LAST 30 DAYS: No - HPI Patient complains to provider of: Weakness Associated symptoms: Other - See above <IRENE PANG - Last Filed: 09/23/16 23:43> <HAILEE JAIN - Last Filed: 09/24/16 00:20> - General Chief Complaint: S/S of Possible Stroke Stated Complaint: weakness right leg Time Seen by Provider: 09/23/16 20:45 - Related Data Allergies/Adverse Reactions: Penicillins Allergy (Verified 09/23/16 22:39) Home Medications: Current Home Medications Atorvastatin Calcium [Lipitor 40 mg Tablet] 40 mg PO QHS 09/23/16 [History] Ezetimibe [Zetia] 10 mg PO DAILY 09/23/16 [History] Levetiracetam [Levetiracetam] 1,000 mg PO Q12H 09/23/16 [History] Lidocaine [Lidocaine] 1 patch TOP DAILY 09/23/16 [History] Oxycodone HCl [Oxycodone HCl] 5 - 10 mg PO QIDP PRN 09/23/16 [History] Paroxetine HCl [Paroxetine HCl] 40 mg PO DAILY 09/23/16 [History] Past Medical History - General Information source: Patient - Social History Smoking Status: Unknown if Ever Smoked Family History: Reviewed & Not Pertinent, CAD, Other - Vascular disease, Alzheimer's Patient has suicidal ideation: No Patient has homicidal ideation: No - Past Medical History Cardiac Medical History: Reports: Hx Hypercholesterolemia, Hx Hypertension, Hx Peripheral Vascular Disease Pulmonary Medical History: Reports: Hx Pneumonia Neurological Medical History: Reports: Hx Cerebrovascular Accident - x3 no use of right side, difficulty speaking, Hx Seizures Musculoskeltal Medical History: Reports Hx Arthritis Past Surgical History: Reports: Hx Abdominal Surgery - hernia repair, Hx Orthopedic Surgery - Carpal tunnel surgery, Other - Mian patch and the drainage for gastric ulcer perforation in 02/2016 - Immunizations Hx Diphtheria, Pertussis, Tetanus Vaccination: No <IRENE PANG - Last Filed: 09/23/16 23:43> Review of Systems - Review of Systems Constitutional: See HPI, Weakness EENT: No symptoms reported Cardiovascular: denies: Chest pain Respiratory: denies: Other - Difficulty breathing Gastrointestinal: No symptoms reported Genitourinary: No symptoms reported Female Genitourinary: No symptoms reported Musculoskeletal: See HPI, Muscle pain - leg Skin: No symptoms reported Hematologic/Lymphatic: No symptoms reported Neurological/Psychological: See HPI, Numbness -: Yes All other systems reviewed and negative <IRENE PANG - Last Filed: 09/23/16 23:43> Physical Exam - Vital signs Vitals: Temp Pulse Resp BP Pulse Ox 98.3 F 77 16 116/76 96 09/23/16 20:38 09/23/16 20:38 09/23/16 20:38 09/23/16 20:38 09/23/16 20:38 - Notes Notes: GENERAL: Alert, interacts well. No acute distress. HEAD: Atraumatic. EYES: Pupils equal, round, and reactive to light. Extraocular movements intact. ENT: Oral mucosa moist, tongue midline. NECK: Full range of motion. Supple. Trachea midline. LUNGS: Clear to auscultation bilaterally, no wheezes, rales, or rhonchi. No respiratory distress. HEART: Regular rate and rhythm. No murmurs, gallops, or rubs. ABDOMEN: Soft, non-tender. Non-distended. Bowel sounds present in all 4 quadrants. EXTREMITIES: No edema, radial and dorsalis pedis pulses 2/4 bilaterally. No cyanosis. Right proximal thigh tender to palpation, no pain with passive flexion and extension. No pain with log roll. NEUROLOGICAL: Alert and oriented x3. Unable to move right leg, does not withdraw to painful stimuli. Right hand is contracted, unable to lift right arm. Speech slow, occasional difficulty with words finding. No slurred speech. Slight right sided facial droop. Biceps and patellar DTRs 2+ bilaterally. PSYCH: Normal affect, normal mood. SKIN: Erythematous right 1st MTP joint that is tender to palpation. <IRENE PANG - Last Filed: 09/23/16 23:43> - Vital signs Vitals: Temp Pulse Resp BP Pulse Ox 98.3 F 77 16 116/76 96 09/23/16 20:38 09/23/16 20:38 09/23/16 20:38 09/23/16 20:38 09/23/16 20:38 <HAILEE JAIN - Last Filed: 09/24/16 00:20> Course - Vital Signs Vital signs: Temp Pulse Resp BP Pulse Ox 98.3 F 77 14 116/76 92 09/23/16 20:38 09/23/16 20:38 09/23/16 21:16 09/23/16 20:38 09/23/16 21:16 - Laboratory Result Diagrams: 09/23/16 21:18 09/23/16 21:18 - Consults Daughter in law Time consulted: 22:30 Reason for consultation: 09/23/16 22:30 Nikki, patient's daughter in law, states the right leg weakness is not new and has been there for 2.5 years and the patient can move it with a brace during physical therapy. Nikki also states that patient has been having pain in the leg after re started physical therapy last week. Dr. Bob Time consulted: 22:20 Reason for consultation: 09/23/16 22:20 agrees to accept patient 09/23/16 22:[address] Hurst of information provided by daughter in law regarding the newness of patient's right leg weakness 09/23/16 22:[address] Hurst after reassessing patient and he will admit patient as potential new CVA <IRENE PANG - Last Filed: 09/23/16 23:43> - Re-evaluation Re-evalutation: 09/23/16 22:57 CBC unremarkable, CMP shows somewhat elevated LFTs with AST of 45, ALT of 63, alkaline phosphatase of 147. Cardiac enzymes negative, head CT shows chronic ischemic changes nothing new, chest x-ray shows persistent or recurrent left lower lobe disease. Patient does have worsening right leg weakness on top of her chronic right leg weakness. I did discuss the patient with her [id number] who is also her medical power of mold breaker, [id number] states that normally she is able to walk in physical therapy while using a brace, states that the patient can usually move her right leg somewhat, her exam is very different to me today than what her [id number] is describing her baseline is. Patient is adamant that she cannot move her right leg at all. I was unable to make her withdraw from noxious stimuli such as a broken Q-tip to the bottom of her foot and intentionally touching the sore bunion on her right great toe. I did discuss this patient with Dr. Hurst who agrees to accept the patient to his service for worsening weakness in the right lower extremity, suspect new onset CVA. Patient is not a candidate for TPA as she has had the symptoms for a week. - Vital Signs Vital signs: Temp Pulse Resp BP Pulse Ox 98.3 F 68 8 L 101/65 93 09/23/16 20:38 09/23/16 21:13 09/23/16 22:41 09/23/16 22:41 09/23/16 22:41 - Laboratory Result Diagrams: 09/23/16 21:18 09/23/16 21:18 Laboratory results interpreted by me: 09/23/16 09/23/16 21:18 21:18 RDW 14.7 H BUN 22 H Glucose 114 H AST 45 H ALT 63 H Alkaline Phosphatase 147 H Creatine Kinase 665 H - EKG Interpretation by Me Additional EKG results interpreted by me: 09/23/16 23:00 EKG shows sinus rhythm at a rate of 68, left axis deviation, normal intervals, no ST segment elevations or depressions, there is nonspecific T-wave flattening noted in lead III, T-wave inversions noted in V2 and V3 per my interpretation. <HAILEE JAIN - Last Filed: 09/24/16 00:20> ED [employer]/Exc Criteria - Inclusion Criteria: 1: Patient presented to ED within 3 hours of acute ischemic stroke symptom onset ? -: No 2: Did baseline CT exclude intracranial hemorrhage and/or other risk factors? -: Yes 3: Is the age of the patient 18 years of age or greater? -: Yes : If any of the above questions are answered "NO" then stop, patient is not a candidate for Alteplase, : If all of the above questions are answered "YES" then continue with Exclusion Criteria. <IRENE PANG - Last Filed: 09/23/16 23:43> ED NIH Stroke Scale - NIH Stroke Scale When completed:: Protocol *: 1. NIH scale should be completed with appropriate accompanying assessment tools. *: 2. The NIH should reflect what the patient is capable of doing and should not be coached by the clinician. 1a. Level of Consciousness: 0=Alert;keenly responsive -: 1=Drowsy -: 2=Obtunded -: 3=Coma/unresponsive or reflex to noxious stimuli. 1a. Responses: 0 1b. Orientation Questions: a. What month is it? -: b. How old are you? -: 0=Answers both questions correctly. -: 1=Answers one question correctly or patient is intubated or has orotracheal trauma. -: 2=Answers neither question correctly. 1b. Responses: 0 1c. Response to commands: a. Open and close eyes? -: b. Siebel Developer and release hand? -: Credit is given despite weakness. Demonstration of task is permitted. Substitute command if hands cannot be used. -: 0=Performs both tasks correctly -: 1=Performs one task correctly -: 2=Performs neither task correctly 1c. Responses: 0 2. Gaze: Establish eye contact and instruct patient to "Follow my finger" -: 0=Normal -: 1=Partial gaze palsy. Gaze is abnormal in one or both eyes, but where forced deviation or total gaze paresis is not present. -: 2=Forced deviation or total gaze paresis. 2. Responses: 0 3. Visual Pablo: Sees fingers in all four quadrants. -: 0=No visual loss. -: 1=Partial hemianopsia. -: 2=Complete hemianopsia. -: 3=Bilateral hemianopsia (including Cortical blindness) 3. Responses: 0 4. Facial Movement: Instruct patient to: -: a. Show me your teeth -: b. Raise your eyebrows -: c. Close your eyes -: d. Smile -: 0=Normal symmetrical movement -: 1=Minor paralysis (flattened nasolabial fold, asymmetry on smiling). -: 2=Partial paralysis (total or near total paralysis of lower face). -: 3=Complete paralysis of upper and lower face 4. Responses: 1 5. Motor functions (left arm): Alternate sides and extend each arm with palms down (90 degrees if sitting or 45 degrees for supine). -: 0=No drift;limb holds for full 10 seconds. -: 1=Drift; limb holds but drifts down before full 10 seconds, but does not hit bed. -: 2=Some effort against gravity; limb cannot get to or maintain position. -: 3=No effort against gravity; limb falls. -: 4=No movement. -: UN=Amputation, joint fusion, explain in comments. 5. Responses (left arm): 0 5. Motor Functions (right arm): Alternate sides and extend each arm with palms down (90 degrees if sitting or 45 degrees for supine). -: 0=No drift;limb holds for full 10 seconds. -: 1=Drift; limb holds but drifts down before full 10 seconds, but does not hit bed. -: 2=Some effort against gravity; limb cannot get to or maintain position. -: 3=No effort against gravity; limb falls. -: 4=No movement. -: UN=Amputation, joint fusion, explain in comments. 5. Responses (right arm): 4 6. Motor Functions (left leg): With patient lying supine, alternate sides and extend each leg (30 degrees always while supine). -: 0=No drift, leg holds position for full 5 seconds -: 1=Drift; leg falls before full 5 seconds but does not hit bed. -: 2=Some effort against gravity, leg falls to bed but some effort against gravity. -: 3=No effort against gravity, leg falls to bed immediately. -: 4=No movement. -: UN=Amputation, joint fusion; explain in comments. 6. Responses (left leg): 0 6. Motor Functions (right leg): With patient lying supine, alternate sides and extend each leg (30 degrees always while supine). -: 0=No drift, leg holds position for full 5 seconds -: 1=Drift; leg falls before full 5 seconds but does not hit bed. -: 2=Some effort against gravity, leg falls to bed but some effort against gravity. -: 3=No effort against gravity, leg falls to bed immediately. -: 4=No movement. -: UN=Amputation, joint fusion; explain in comments. 6. Responses (right leg): 3 7. Limb Ataxia: With eyes open instruct patient to: -: a. "Touch your finger to your nose". -: b. "Touch your heel to your orourke" -: 0=Absent -: 1=Present in one limb. -: 2=Present in two limbs. -: UN=Amputation or joint fusion; explain in comments. 7. Responses: 0 8. Sensory: Test sensation using pinprick or noxious stimuli. Test as many body parts as possible. -: 0=Normal;no sensory loss -: 1=Mile to moderate sensory loss (patient feels pin prick but is less sharp on affected side). -: 2=Severe or total sensory loss. 8. Responses: 1 9. Best Language: Instruct patient to: -: a. "Describe what you see in this picture." -: b. "Name the items in this picture." -: c. "Read these sentences." -: 0=No aphasia, normal -: 1=Mild to moderate aphasia. -: 2=Severe aphasia -: 3=Mute, global aphasia, no usable speech or auditory comprehension. 9. Responses: 0 10. Articulation, Dysarthia: Instruct patient to: -: "Read these words" or "Repeat these words" -: 0=Normal -: 1=Mild to moderate; patient may slur some words but can be understood without difficulty. -: 2=Severe; patients speech so slurred as to be unintelligible in the absence of dysphasia. -: UN=Intubated or other physical barrier, explain in comments. 10. Responses: 1 11. Extinction or inattention: 0=No abnormality -: 1= Visual, tactile, auditory, spatial, or personal inattention or extinction to bilateral simulation in one or the sensory modalities. -: 2=Profound nury-inattention or nury-inattention to more than one modality; does not recognize own hand. 11. Responses: 0 Total Score: 10 <HAILEE JAIN - Last Filed: 09/24/16 00:20> Discharge <IRENE PANG - Last Filed: 09/23/16 23:43> - Discharge Admitting Provider: Sara [facility] Admitted: Telemetry Scribe Attestation: 09/24/16 00:20 I personally performed the services described in the documentation, reviewed and edited the documentation which was dictated to the scribe in my presence, and it accurately records my words and actions. <HAILEE JAIN - Last Filed: 09/24/16 00:20> - Discharge Clinical Impression: Right leg weakness CVA (cerebral infarction) Qualifiers: Cerebral infarction mechanism: unspecified mechanism Qualified Code(s): I63.9 - Cerebral infarction, unspecified Condition: Fair Disposition: ADMITTED INPATIENT Scribe Documentation - Scribe Written by Scribe:: alejandra Mckay, 09/23/16, 2312 acting as scribe for :: Marques <IRENE PANG - Last Filed: 09/23/16 23:43>
[2016-09-23 21:38] LABS: ABSOLUTE EOSINOPHILS # (AUTO) 0.1 10^3/uL (0.0-0.6); ABSOLUTE LYMPHOCYTES (AUTO) 1.7 10^3/uL (0.5-4.7); ABSOLUTE MONOCYTES (AUTO) 0.7 10^3/uL (0.1-1.4); ABSOLUTE NEUT (AUTO) 5.6 10^3/uL (1.7-8.2); BASOPHILS % (AUTO) 0.4 % (0-2); EOSINOPHILS % (AUTO) 1.8 % (0-6); HEMATOCRIT 36.1 % (36.0-47.0); HEMOGLOBIN 12.1 g/dL (12.0-15.5); HGB HCT DIFFERENCE 0.2; LYMPHOCYTES % (AUTO) 21.1 % (13-45); MEAN CORPUSCULAR HEMOGLOBIN 30.7 pg (27.0-33.4); MEAN CORPUSCULAR HGB CONC 33.5 g/dL (32.0-36.0); MEAN CORPUSCULAR VOLUME 92 fl (80-97); MONOCYTES % (AUTO) 8.7 % (3-13); RED BLOOD COUNT 3.94 10^6/uL (3.72-5.28); RED CELL DISTRIBUTION WIDTH 14.7 % (11.5-14.0); WHITE BLOOD COUNT 8.3 10^3/uL (4.0-10.5)
[2016-09-23] MEDS ORDERED: ASPIRIN 300 MG SUPP, RECTAL PR ONE (21:39)
[2016-09-23 21:50] LABS: ALANINE AMINOTRANSFERASE 63 U/L (9-52); ALBUMIN 3.8 g/dL (3.5-5.0); ALKALINE PHOSPHATASE 147 U/L (38-126); ANION GAP 12 (5-19); ASPARTATE AMINO TRANSFERASE 45 U/L (14-36); BILIRUBIN,DIRECT 0.3 mg/dL (0.0-0.4); BILIRUBIN,TOTAL 0.4 mg/dL (0.2-1.3); BLOOD UREA NITROGEN 22 mg/dL (7-20); CALCIUM 9.2 mg/dL (8.4-10.2); CARBON DIOXIDE 26 mmol/L (22-30); CHLORIDE 105 mmol/L (98-107); CREATINE KINASE 665 U/L (30-135); CREATININE RESULT 0.63 mg/dL (0.52-1.25); GLUCOSE 114 mg/dL (75-110); SODIUM 142.9 mmol/L (137-145)
[2016-09-23 22:05] LABS: CREATINE KINASE MB 1.55 ng/mL (<4.55); TROPONIN I < 0.012 ng/mL
[2016-09-23] MEDS ORDERED: ACETAMINOPHEN 325 MG TABLET PO PRN (22:36)
[2016-09-23] MEDS ORDERED: ASPIRIN 81 MG TABLET, CHEWABLE PO ONE (22:38)
[2016-09-23] MEDS ORDERED: BACLOFEN 20 MG TABLET PO ONE (23:00)
[2016-09-23] MEDS ORDERED: ATORVASTATIN CALCIUM 80 MG TABLET PO ONE (23:00)
[2016-09-23] MEDS ORDERED: TRAZODONE HCL 50 MG TABLET PO ONE (23:00)
[2016-09-23] MEDS ORDERED: ASPIRIN/DIPYRIDAMOLE 25-200 MG 1 CAP.SR CPMP.12HR PO ONE (23:00)
[2016-09-23] MEDS ORDERED: LEVETIRACETAM 500 MG TABLET PO ONE (23:00)
[2016-09-24] MEDS ORDERED: NORMAL SALINE 1000 ML 1,000 ML IV SCH (05:00)
[2016-09-24] MEDS: HEPARIN SOD (PORCINE) 5,000 UNIT/ML 1 ML SYRINGE SUBCUT SCH ×2 (05:15→14:50)
[2016-09-24 06:17] LABS: ABSOLUTE EOSINOPHILS # (AUTO) 0.2 10^3/uL (0.0-0.6); ABSOLUTE LYMPHOCYTES (AUTO) 1.9 10^3/uL (0.5-4.7); ABSOLUTE MONOCYTES (AUTO) 0.8 10^3/uL (0.1-1.4); ABSOLUTE NEUT (AUTO) 5.2 10^3/uL (1.7-8.2); BASOPHILS % (AUTO) 0.5 % (0-2); EOSINOPHILS % (AUTO) 2.1 % (0-6); HEMATOCRIT 32.1 % (36.0-47.0); HEMOGLOBIN 10.6 g/dL (12.0-15.5); HGB HCT DIFFERENCE -0.3; LYMPHOCYTES % (AUTO) 23.7 % (13-45); MEAN CORPUSCULAR HEMOGLOBIN 30.2 pg (27.0-33.4); MEAN CORPUSCULAR VOLUME 91 fl (80-97); MONOCYTES % (AUTO) 9.5 % (3-13); RED BLOOD COUNT 3.51 10^6/uL (3.72-5.28); RED CELL DISTRIBUTION WIDTH 15.1 % (11.5-14.0); SEGMENTED NEUTROPHILS % (AUTO) 64.2 % (42-78); WHITE BLOOD COUNT 8.1 10^3/uL (4.0-10.5)
[2016-09-24 06:28] LABS: ALANINE AMINOTRANSFERASE 47 U/L (9-52); ALBUMIN 2.8 g/dL (3.5-5.0); ALKALINE PHOSPHATASE 110 U/L (38-126); ANION GAP 9 (5-19); ASPARTATE AMINO TRANSFERASE 32 U/L (14-36); BILIRUBIN,DIRECT 0.3 mg/dL (0.0-0.4); BILIRUBIN,TOTAL 0.3 mg/dL (0.2-1.3); BLOOD UREA NITROGEN 20 mg/dL (7-20); CALCIUM 8.4 mg/dL (8.4-10.2); CARBON DIOXIDE 24 mmol/L (22-30); CHLORIDE 111 mmol/L (98-107); CHOLESTEROL 107.01 mg/dL (0-200); CREATININE RESULT 0.62 mg/dL (0.52-1.25); Direct HDL 40 mg/dL (>40); GLUCOSE 102 mg/dL (75-110); POTASSIUM 4.1 mmol/L (3.6-5.0); SODIUM 143.5 mmol/L (137-145); TOTAL PROTEIN 5.5 g/dL (6.3-8.2); TRIGLYCERIDES 63 mg/dL (<150)
--- NOTE | 2016-09-24 06:28 | PDOC H&P ---
History of Present Illness Admission Date/PCP: 09/23/16 23:05 Patient complains of: Right leg weakness 7 days History of Present Illness: MILY GONZALEZ is a 66 year old female with a past medical history of remote CVA and long-term deficits of apraxia, seizures and right upper extremity contracture, severe stenosis of left carotid artery, hypertension and dyslipidemia. She had been in her usual state of health until approximately 7 days ago developing acute complete right lower extremity weakness Without associated symptoms, today she follows up in the emergency room for evaluation where she is found to have 0 out of 4 strength and diffuse pain in the right leg , rhabdomyolysis and referred to the hospitalist for admission. Patient denies recent change in medications and otherwise feels well. Past Medical History Cardiac Medical History: Reports: Hyperlipidema, Hypertension, Peripheral Vascular Disease Denies: Coronary Artery Disease, Myocardial Infarction Pulmonary Medical History: Reports: Pneumonia Denies: Asthma, Bronchitis, Chronic Obstructive Pulmonary Disease (COPD) Neurological Medical History: Reports: Seizures Musculoskeltal Medical History: Reports: Arthritis Psychiatric Medical History: Denies: Depression Hematology: Denies: Anemia Past Surgical History Past Surgical History: Reports: Orthopedic Surgery - Carpal tunnel surgery, Other - Mian patch and the drainage for gastric ulcer perforation in 02/2016 Social History Information Source: Patient, Emergency Med Personnel, [facility] Records Lives with: Other - 24 hour caregiver Smoking Status: Never Smoker Frequency of Alcohol Use: None Hx Recreational Drug Use: No Drugs: None Hx Prescription Drug Abuse: No - Advance Directive Resuscitation Status: Full Code Family History Family History: CAD, Other - Vascular disease, Alzheimer's Parental Family History Reviewed: Yes Children Family History Reviewed: Yes Sibling(s) Family History Reviewed.: Yes Medication/Allergy Home Medications: Acetaminophen [Tylenol 325 mg Tablet] 650 mg PO Q4HP PRN 05/14/16 Aspirin [Aspirin 81 mg Chewable Tablet] 325 mg PO DAILY 05/14/16 Baclofen [Baclofen 20 Mg Tablet] 20 mg PO QIDP PRN 05/14/16 Ferrous Sulfate [Iron] 325 mg PO BID 05/14/16 Trazodone HCl [Desyrel 50 mg Tablet] 50 mg PO QHS 05/14/16 Lansoprazole [Prevacid] 30 mg PO BID 06/05/16 Atorvastatin Calcium [Lipitor 40 mg Tablet] 40 mg PO QHS 09/23/16 Ezetimibe [Zetia] 10 mg PO DAILY 09/23/16 Levetiracetam [Levetiracetam] 1,000 mg PO Q12H 09/23/16 Lidocaine [Lidocaine] 1 patch TOP DAILY 09/23/16 Oxycodone HCl [Oxycodone HCl] 5 - 10 mg PO QIDP PRN 09/23/16 Paroxetine HCl [Paroxetine HCl] 40 mg PO DAILY 09/23/16 Allergies/Adverse Reactions: Penicillins Allergy (Verified 09/23/16 22:39) Review of Systems Constitutional: ABSENT: chills, fever(s), headache(s), weight gain, weight loss Eyes: ABSENT: visual disturbances Ears: ABSENT: hearing changes Cardiovascular: ABSENT: chest pain, dyspnea on exertion, edema, orthropnea, palpitations Respiratory: ABSENT: cough, hemoptysis Gastrointestinal: ABSENT: abdominal pain, constipation, diarrhea, hematemesis, hematochezia, nausea, vomiting Genitourinary: ABSENT: dysuria, hematuria Musculoskeletal: ABSENT: joint swelling Integumentary: ABSENT: rash, wounds Neurological: ABSENT: abnormal gait, abnormal speech, confusion, dizziness, focal weakness, syncope Psychiatric: ABSENT: anxiety, depression, homidical ideation, suicidal ideation Endocrine: ABSENT: cold intolerance, heat intolerance, polydipsia, polyuria Hematologic/Lymphatic: ABSENT: easy bleeding, easy bruising Physical Exam Vital Signs: Temp Pulse Resp BP Pulse Ox 97.7 F 67 18 111/62 91 L 09/24/16 04:33 09/24/16 04:33 09/24/16 04:33 09/24/16 04:33 09/24/16 04:33 Intake & Output 09/22/16 09/23/16 09/24/16 11:59 11:59 11:59 Weight 58.9 kg General appearance: PRESENT: no acute distress, cooperative, well-developed, well-nourished Head exam: PRESENT: atraumatic, normocephalic Eye exam: PRESENT: conjunctiva pink, EOMI, PERRLA. ABSENT: scleral icterus Ear exam: PRESENT: normal external ear exam Mouth exam: PRESENT: moist, tongue midline Neck exam: ABSENT: JVD, lymphadenopathy, meningismus, tenderness, thyromegaly Respiratory exam: PRESENT: clear to auscultation caitlin. ABSENT: rales, rhonchi, wheezes Cardiovascular exam: PRESENT: RRR. ABSENT: diastolic murmur, rubs, systolic murmur Pulses: PRESENT: normal dorsalis pedis pul Vascular exam: PRESENT: normal capillary refill GI/Abdominal exam: PRESENT: normal bowel sounds, soft. ABSENT: distended, guarding, mass, organolmegaly, rebound, tenderness Rectal exam: PRESENT: deferred Extremities exam: PRESENT: full ROM, other. ABSENT: calf tenderness, clubbing, joint swelling, pedal edema, tenderness, +1 edema Musculoskeletal exam: PRESENT: other - 0 of 4 strength in the right sided extremities Neurological exam: PRESENT: alert, awake, oriented to person, oriented to place , oriented to time, oriented to situation, CN II-XII grossly intact. ABSENT: motor sensory deficit Psychiatric exam: PRESENT: appropriate affect, normal mood. ABSENT: homicidal ideation, suicidal ideation Skin exam: PRESENT: dry, intact, warm. ABSENT: cyanosis, rash Results Laboratory Results: 09/24/16 00:25 TSH 3.01 09/24/16 00:25 Troponin I < 0.012 Impressions: Chest X-Ray 09/23/16 20:45 IMPRESSION: Recurrent or persistent left lower lobe airspace disease - subsegmental atelectasis and effusion. Head CT 09/23/16 20:45 IMPRESSION: Stable old left cerebral ischemic changes. No acute intracranial finding. Assessment & Plan - Diagnosis (1) CVA (cerebral infarction) Qualifiers: Cerebral infarction mechanism: unspecified mechanism Qualified Code( s): I63.9 - Cerebral infarction, unspecified Is this a current diagnosis for this admission?: YesPlan: Initial CT negative will admit with CVA care set evaluate MRI brain, former carotid Doppler of July 2016 essentially complete occlusion of the left side, I am concerned for her failure of aspirin and will start Aggrenox, full dose Lipitor and physical therapy (2) Hypotension Is this a current diagnosis for this admission?: YesPlan: Unclear cause likely excessive antihypertensive medication, evaluate cortisol and IV fluid bolus to maintain systolic blood pressure greater than 150. (3) Right leg weakness Is this a current diagnosis for this admission?: YesPlan: Physical therapy patient may require rehab (4) Rhabdomyolysis Is this a current diagnosis for this admission?: YesPlan: Secondary to inability of right leg movement, she will receive an IV fluid challenge reevaluation of total CK - Time Time Spent: 50 to 70 Minutes - Inpatient Certification Medical Necessity: Need Close Monitoring Due to Risk of Patient Decompensation
[2016-09-24 06:39] LABS: DIRECT LDL 56 mg/dL (<100)
[2016-09-24] MEDS ORDERED: IPRATROPIUM/ALBUTEROL 0.5-2.5 MG/3 ML AMPUL NEB SCH (08:00)
[2016-09-24] MEDS: IPRATROPIUM/ALBUTEROL 0.5-2.5 MG/3 ML AMPUL NEB SCH ×2 (08:54→16:17)
[2016-09-24] MEDS ORDERED: LEVETIRACETAM 500 MG TABLET PO SCH (10:00)
[2016-09-24] MEDS ORDERED: DOCUSATE SODIUM 100 MG CAPSULE PO SCH ×2 (10:00→18:00)
[2016-09-24] MEDS ORDERED: ASPIRIN/DIPYRIDAMOLE 25-200 MG 1 CAP.SR CPMP.12HR PO SCH (10:00)
[2016-09-24] MEDS ORDERED: BACLOFEN 20 MG TABLET PO SCH (10:00)
[2016-09-24] MEDS ORDERED: (PENDING PHARMACY ID) (Oxycodone Hcl [Oxycodone Hcl 10 Mg Tablet] 5 MG) PO PRN (10:04)
[2016-09-24] MEDS ORDERED: BACLOFEN 20 MG TABLET PO PRN (10:04)
[2016-09-24] MEDS ORDERED: ACETAMINOPHEN 325 MG TABLET PO PRN (10:09)
[2016-09-24] MEDS ORDERED: OXYCODONE HCL IR 5 MG TABLET PO PRN (10:22)
--- NOTE | 2016-09-24 10:47 | EKG REPORT ---
SEVERITY:- BORDERLINE ECG - SINUS RHYTHM BORDERLINE T ABNORMALITIES, ANTERIOR LEADS : Confirmed by: Sully Landeros MD 24-Sep-2016 10:46:35
[2016-09-24] MEDS ORDERED: BACLOFEN 20 MG TABLET PO ONE (11:45)
[2016-09-24] MEDS: BACLOFEN 20 MG TABLET PO SCH ×2 (14:50→17:21)
--- NOTE | 2016-09-24 17:39 | RADIOLOGY REPORT (SQ) ---
EXAM DESCRIPTION: MRI HEAD WITHOUT COMPLETED DATE/TIME: 09/24/2016 5:18 pm REASON FOR STUDY: Left weakness R53.1 WEAKNESS COMPARISON: Brain CT scan dated 09/23/2016 and MRI of the brain dated December 2015 TECHNIQUE: Multiplanar imaging includes non-contrasted T1, T2, FLAIR, and diffusion with ADC map seq uences. Images stored on PACS. LIMITATIONS: None. FINDINGS: ANATOMY: No anomalies. Normal vascular flow voids. Pituitary fossa normal. CSF SPACES: Normal in size and contour. No hemorrhage. CEREBRUM: Sulci and gyri normal in size and contour. Normal white matter signal on FLAIR imaging. Th e previously described area of prior infarction in the left frontoparietal region appears stable. No evidence of hemorrhage, mass, or extraaxial fluid collection. POSTERIOR FOSSA: No signal alteration. No hemorrhage. No edema, masses or mass effect. Internal mena tory canals, cerebello-pontine angles, mastoids normal. DIFFUSION IMAGING: Negative for acute or sub-acute infarction. ORBITS: No masses. Globes normal. PARANASAL SINUSES: No fluid levels. Mucosa normal. OTHER: No other significant finding. IMPRESSION: The previously described area of prior infarction in the left frontoparietal region appe ars stable. No acute changes are identified. Other findings as noted above. TECHNICAL DOCUMENTATION: JOB ID: [id number]- All Rights Reserved
[2016-09-24] MEDS ORDERED: FERROUS SULFATE 325 MG TABLET PO SCH (18:00)
[2016-09-24 18:43] VITALS: BP 97/59
[2016-09-24] MEDS ORDERED: ATORVASTATIN CALCIUM 80 MG TABLET PO SCH (22:00)
[2016-09-24] MEDS ORDERED: PHARMACY COMMUNICATION ORDER MC SCH (22:00)
[2016-09-24] MEDS ORDERED: (PENDING PHARMACY ID) (Levetiracetam [Keppra] 1,000 MG) PO SCH (22:00)
[2016-09-24] MEDS ORDERED: ATORVASTATIN CALCIUM 40 MG TABLET PO SCH (22:00)
[2016-09-24] MEDS ORDERED: TRAZODONE HCL 50 MG TABLET PO SCH ×2 (22:00)
[2016-09-25] MEDS ORDERED: LANSOPRAZOLE 30 MG TAB.RAP.DR PO SCH (06:00)
--- NOTE | 2016-09-25 07:54 | PDOC DISCHARGE SUMMARY ---
General - Admit/Disc Date/PCP Admission Date/Primary Care Provider: 09/23/16 23:05 Discharge Date: 09/24/16 - Discharge Diagnosis (1) Transient ischemic attack (TIA) Is this a current diagnosis for this admission?: YesSummary: Right leg weakness is back to her baseline. CT and MRI of the head show no new findings (2) Right leg weakness Is this a current diagnosis for this admission?: YesSummary: Patient is at baseline. Will continue with home physical therapy (3) Anemia Is this a current diagnosis for this admission?: Yes (4) Apraxia following cerebrovascular disease Is this a current diagnosis for this admission?: YesSummary: Unchanged from baseline (5) Elevated blood pressure reading Is this a current diagnosis for this admission?: YesSummary: Resolved with home medications. Will continue current medications - Additional Information Resuscitation Status: Full Code Discharge Diet: Cardiac Discharge Activity: Activity As Tolerated, Supervised Activity, Walk Frequently , Weigh Daily Home Medications: Acetaminophen [Tylenol 325 mg Tablet] 650 mg PO Q4HP PRN tablet 09/24/16 Ascorbic Acid [Vitamin C] 1,000 mg PO DAILY 09/24/16 Aspirin [Aspirin 81 mg Chewable Tablet] 81 mg PO BIDBS 09/24/16 Aspirin/Dipyridamole [Aggrenox 25 mg/200 mg Capsule SA] 1 cap.sr PO Q12 #60 cpmp.12hr 09/24/16 Atorvastatin Calcium [Lipitor 40 mg Tablet] 40 mg PO QHS 09/24/16 Baclofen [Baclofen 20 mg Tablet] 20 mg PO QID 09/24/16 Docusate Sodium [Colace 100 mg Capsule] 100 mg PO BID 09/24/16 Docusate Sodium [Colace 100 mg Capsule] 100 mg PO BID #60 capsule 09/24/16 Ezetimibe [Zetia 10 mg Tablet] 10 mg PO DAILY 09/24/16 Ferrous Sulfate [Feosol 325 mg Tablet] 325 mg PO BID 09/24/16 Folic Acid 0.8 mg PO DAILY 09/24/16 Lansoprazole [Prevacid] 30 mg PO QAM 09/24/16 Levetiracetam [Keppra] 1,000 mg PO Q12 09/24/16 Lidocaine [Lidoderm 5% (700 mg) Transdermal Patch] 1 patch TP DAILY 09/24/16 Multivitamin [Tab-A-Basilio] 1 each PO DAILY 09/24/16 Oxycodone HCl [Oxycodone HCl 10 MG Tablet] 5 mg PO QIDP PRN 09/24/16 Paroxetine HCl [Paxil] 40 mg PO DAILY 09/24/16 Trazodone HCl [Desyrel 50 mg Tablet] 50 mg PO QHS 09/24/16 History of Present Illness Patient complains of: Inabilty to move right leg and increased pain in the leg History of Present Illness: MILY GONZALEZ is a 66 year old female with a past medical history of remote CVA and long-term deficits of apraxia, seizures and right upper extremity contracture, severe stenosis of left carotid artery, hypertension and dyslipidemia. She had been in her usual state of health until approximately 7 days ago developing acute complete right lower extremity weakness Without associated symptoms, today she follows up in the emergency room for evaluation where she is found to have 0 out of 4 strength and diffuse pain in the right leg , rhabdomyolysis and referred to the hospitalist for admission. Patient denies recent change in medications and otherwise feels well. Hospital Course Hospital Course: Patient was admitted to [facility] on telemetry. Her leg pain was well controlled with oral hydrocodone. She had no further complaints of pain. Her family feel she was mostly at her baseline and was complaining of increased pain due to physical therapy that had been recently initiated at home. The patient did undergo MRI of her head which showed no new findings. The patient is now comfortable at her baseline. She will discharged home with family. Family has around the clock caregivers for the patient. Physical Exam Vital Signs: Temp Pulse Resp BP Pulse Ox 98.5 F 81 19 97/59 L 98 09/24/16 18:41 09/24/16 18:41 09/24/16 18:41 09/24/16 18:41 09/24/16 18:41 Intake & Output 09/24/16 09/25/16 09/26/16 06:59 06:59 06:59 Intake Total 0 Balance 0 Weight 58.9 kg General appearance: PRESENT: no acute distress, well-developed, well-nourished Head exam: PRESENT: atraumatic, normocephalic Eye exam: PRESENT: conjunctiva pink, EOMI, PERRLA. ABSENT: scleral icterus Ear exam: PRESENT: normal external ear exam Mouth exam: PRESENT: moist, tongue midline Neck exam: ABSENT: carotid bruit, JVD, lymphadenopathy, thyromegaly Respiratory exam: PRESENT: clear to auscultation caitlin. ABSENT: rales, rhonchi, wheezes Cardiovascular exam: PRESENT: RRR. ABSENT: diastolic murmur, rubs, systolic murmur Vascular exam: PRESENT: normal capillary refill GI/Abdominal exam: PRESENT: normal bowel sounds, soft. ABSENT: distended, guarding, mass, organolmegaly, rebound, tenderness Rectal exam: PRESENT: deferred Extremities exam: PRESENT: full ROM. ABSENT: calf tenderness, clubbing, pedal edema Neurological exam: PRESENT: alert, awake, oriented to person, oriented to place , oriented to time, oriented to situation, abnormal gait, ataxia, CN II-XII grossly intact Skin exam: PRESENT: dry, intact, warm. ABSENT: cyanosis, rash Results Laboratory Results: 09/24/16 05:23 09/24/16 05:23 09/24/16 09/24/16 00:25 05:23 Creatine Kinase 485 H Troponin I < 0.012 Impressions: Chest X-Ray 09/23/16 20:45 IMPRESSION: Recurrent or persistent left lower lobe airspace disease - subsegmental atelectasis and effusion. Head CT 09/23/16 20:45 IMPRESSION: Stable old left cerebral ischemic changes. No acute intracranial finding. Head MRI 09/24/16 00:00 IMPRESSION: The previously described area of prior infarction in the left frontoparietal region appears stable. No acute changes are identified. Other findings as noted above. Plan Discharge Plan: Home with family Time Spent: Less than 30 Minutes
[2016-09-25] MEDS ORDERED: (PENDING PHARMACY ID) (Lansoprazole [Prevacid] 30 MG) PO SCH (08:00)
[2016-09-25] MEDS ORDERED: EZETIMIBE 10 MG TABLET PO SCH (10:00)
[2016-09-25] MEDS ORDERED: LIDOCAINE 5% (700 MG) TRANSDERMAL ADH..PATCH TP SCH (10:00)
[2016-09-25] MEDS ORDERED: PAROXETINE HCL 20 MG TABLET PO SCH (10:00)
== END 2016-09-24 19:41 | disposition home or self-care (01) ==
LOC: ER 20:32 → EH 23:05 → UNDOADMOB 23:14 → EH 23:14 → 3S 09-24 01:25
PROVIDERS: ADMIT Internal Medicine; ATTEND Internal Medicine
DX: G45.9 Transient cerebral ischemic attack, unspecified (principal); I69.851 Hemiplegia and hemiparesis following other cerebrovascular disease affecting right dominant side; I69.990 Apraxia following unspecified cerebrovascular disease; M62.82 Rhabdomyolysis; D64.9 Anemia, unspecified; I10 Essential (primary) hypertension; E78.5 Hyperlipidemia, unspecified; I65.22 Occlusion and stenosis of left carotid artery; M79.604 Pain in right leg; I69.398 Other sequelae of cerebral infarction; R56.9 Unspecified convulsions; M24.541 Contracture, right hand; I69.328 Other speech and language deficits following cerebral infarction; I73.9 Peripheral vascular disease, unspecified; M19.90 Unspecified osteoarthritis, unspecified site; I95.9 Hypotension, unspecified; Z79.899 Other long term (current) drug therapy; Z79.82 Long term (current) use of aspirin; Z82.49 Family history of ischemic heart disease and other diseases of the circulatory system; Z84.89 Family history of other specified conditions
CPT/HCPCS: 93005; 99285; 36415 ×2; 82553; 82550 ×2; 84443; 85025 ×2; 80053 ×2; 84484 ×2; 83036; 80061; 70551; 71010; 70450; 94799; 93010; 94640; 97163; 92523; A9270 ×11; J1644; J3490; J7030; G8978; G8979; G8999; G9186; G0378; J7620

== ENCOUNTER → 2016-10-21 | Outpatient (CLI) | payer MEDICARE ==
[2016-10-21 14:01] LABS: ABSOLUTE EOSINOPHILS # (AUTO) 0.3 10^3/uL (0.0-0.6); ABSOLUTE LYMPHOCYTES (AUTO) 2.1 10^3/uL (0.5-4.7); ABSOLUTE MONOCYTES (AUTO) 0.5 10^3/uL (0.1-1.4); ABSOLUTE NEUT (AUTO) 3.1 10^3/uL (1.7-8.2); BASOPHILS % (AUTO) 0.6 % (0-2); EOSINOPHILS % (AUTO) 4.7 % (0-6); HEMATOCRIT 38.9 % (36.0-47.0); HEMOGLOBIN 13.2 g/dL (12.0-15.5); HGB HCT DIFFERENCE 0.7; LYMPHOCYTES % (AUTO) 35.1 % (13-45); MEAN CORPUSCULAR HGB CONC 33.8 g/dL (32.0-36.0); MEAN CORPUSCULAR VOLUME 92 fl (80-97); MONOCYTES % (AUTO) 8.2 % (3-13); RED BLOOD COUNT 4.24 10^6/uL (3.72-5.28); RED CELL DISTRIBUTION WIDTH 14.3 % (11.5-14.0); SEGMENTED NEUTROPHILS % (AUTO) 51.4 % (42-78)
[2016-10-21 14:15] LABS: ANION GAP 12 (5-19); BLOOD UREA NITROGEN 25 mg/dL (7-20); CALCIUM 9.6 mg/dL (8.4-10.2); CARBON DIOXIDE 29 mmol/L (22-30); CHLORIDE 103 mmol/L (98-107); CREATINE KINASE 36 U/L (30-135); CREATININE RESULT 0.73 mg/dL (0.52-1.25); GLUCOSE 93 mg/dL (75-110); POTASSIUM 4.6 mmol/L (3.6-5.0); SODIUM 143.6 mmol/L (137-145)
== END ==
LOC: OD 12:07
PROVIDERS: ATTEND Family Medicine
DX: D50.0 Iron deficiency anemia secondary to blood loss (chronic) (principal); M62.82 Rhabdomyolysis
CPT/HCPCS: 36415; 80048; 82550; 82728; 83540; 83550; 85025

== ENCOUNTER → 2016-11-23 | Outpatient (CLI) | payer MEDICARE ==
--- NOTE | 2016-11-23 17:37 | RADIOLOGY REPORT (SQ) ---
EXAM DESCRIPTION: ARTERIAL LOWER EXTREM BILAT COMPLETED DATE/TIME: 11/23/2016 4:01 pm REASON FOR STUDY: PVD I73.9 PERIPHERAL VASCULAR DISEASE, UNSPECIFIED COMPARISON: 06/30/2016 arterial Doppler, 03/08/[address] abdomen pelvis 07/09/2016 TECHNIQUE: Dynamic and static iniguez scale and color images acquired of the lower extremity arteries. Additional selected spectral images recorded. ABIs recorded. Bilateral toe plethysmography was performed LIMITATIONS: None. FINDINGS: RIGHT LEG: ABIS: Normal, over 1.0. INFLOW ARTERIES: Normal, no obstruction evident. FEMORAL ARTERIES:Multiphasic waveforms. Normal, no velocity elevation to suggest focal stenosis. Norm al color Doppler evaluation. No aneurysm. POPLITEAL ARTERY:Multiphasic waveforms. Normal, no velocity elevation to suggest focal stenosis. Norm al color Doppler evaluation. No aneurysm. PATENT TIBIOPERONEAL TRUNK AND 3 VESSEL RUNOFF: Yes, normal vessels. TBI: Not performed. OTHER: Right toe plethysmography indicates a delayed upstroke and decreased amplitude of the wavefor ms compared to the left toes, suggesting small vessel disease. LEFT LEG: ABIS: Normal, over 1.0. INFLOW ARTERIES: Normal, no obstruction evident. FEMORAL ARTERIES:Multiphasic waveforms. Normal, no velocity elevation to suggest focal stenosis. Norm al color Doppler evaluation. No aneurysm. POPLITEAL ARTERY:Multiphasic waveforms. Normal, no velocity elevation to suggest focal stenosis. Norm al color Doppler evaluation. No aneurysm. PATENT TIBIOPERONEAL TRUNK AND 3 VESSEL RUNOFF: Yes, normal vessels. TBI: Not performed. OTHER: Normal left toe plethysmography. IMPRESSION: NORMAL BILATERAL LOWER EXTREMITY ARTERIAL DOPPLER WITH ABIs. COMMENT: [facility] NORMAL: Greater than 1.0 MINIMAL DISEASE: 0.9 to 1.0 CLAUDICATION: 0.5 to 0.9 SEVERE ARTERIAL DISEASE: Less than 0.5 [facility] NORMAL: Greater than 1.0 (1.2 If Heavy Calcifications) NORMAL TO MILD ISCHEMIA: 0.8 to 1.0 MODERATE ISCHEMIA: 0.4 to 0.8 SEVERE ISCHEMIA: Less than 0.4 TECHNICAL DOCUMENTATION: JOB ID: [id number]- All Rights Reserved
== END ==
LOC: SP 14:29
PROVIDERS: ATTEND Podiatrist Foot & Ankle Surgery
DX: I73.9 Peripheral vascular disease, unspecified (principal)
CPT/HCPCS: 93925

== ENCOUNTER → 2016-11-27 | Outpatient (CLI) | payer MEDICARE ==
--- NOTE | 2016-11-27 09:40 | RADIOLOGY REPORT (SQ) ---
EXAM DESCRIPTION: CT ABD/PELVIS WITH IV ORAL COMPLETED DATE/TIME: 11/27/2016 7:57 am REASON FOR STUDY: RLQ PAIN (R10.31), LLQ PAIN (R10.32), CONSTIPATION-SLOW TRANSIT (K59.01), C R10.31 RIGHT LOWER QUADRANT PAIN R10.32 LEFT LOWER QUADRANT PAIN K59.01 SLOW TRANSIT CONSTIPATION COMPARISON: 05/16/2016. TECHNIQUE: CT scan of the abdomen and pelvis performed with intravenous and oral contrast using tamika susan scanning technique with dynamic intravenous contrast injection. Images reviewed with lung, soft t issue, and bone windows. Reconstructed coronal and sagittal MPR images reviewed. Delayed images for e valuation of the urinary system also acquired. All images stored on PACS. All CT scanners at this facility use dose modulation, iterative reconstruction, and/or weight based d osing when appropriate to reduce radiation dose to as low as reasonably achievable (ALARA). [facility]: Dose Right [facility]: CareDose [facility]: Dose Right [facility]: Teradose 4D [facility]: MOOI CONTRAST TYPE AND DOSE: contrast/concentration: Isovue 370.00 mg/ml; Total Contrast Delivered: 66.0 ml; Total Saline Delivered: 65.0 ml RENAL FUNCTION: Creatinine 0.7. RADIATION DOSE: Up-to-date CT equipment and radiation dose reduction techniques were employed. CTDIv ol: 8.2 - 9.7 mGy. DLP: 916 mGy-cm.. LIMITATIONS: None. FINDINGS: LOWER CHEST: No significant findings. No nodules or infiltrates. LIVER: Normal size. No masses. No dilated ducts. SPLEEN: Normal size. No focal lesions. PANCREAS: No masses. Mild dilatation of the pancreatic duct which is stable. GALLBLADDER: No identified stones by CT criteria. No inflammatory changes to suggest cholecystitis. ADRENAL GLANDS: No significant masses or asymmetry. RIGHT KIDNEY AND URETER: No solid masses. No significant calcification. No hydronephrosis or hydroure ter. LEFT KIDNEY AND URETER: No solid masses. No significant calcification. No hydronephrosis or hydrouret er. AORTA AND VESSELS: No aneurysm. Extensive of atherosclerotic calcifications. At least 50% stenosis of the proximal celiac and greater than 50% stenosis of the SMA. RETROPERITONEUM: No retroperitoneal adenopathy, hemorrhage or masses. BOWEL AND PERITONEAL CAVITY: No obstruction. No visualized masses. No free fluid. No inflammatory ch anges or thickening of bowel wall. APPENDIX: Normal. PELVIS: No significant masses. Normal bladder. No free fluid. ABDOMINAL WALL: No masses. No hernias. BONES: No significant or acute findings. OTHER: No other significant finding. IMPRESSION: No acute findings. 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 C onsider correlation with mesenteric Doppler or CT angiography if clinically indicated. TECHNICAL DOCUMENTATION: JOB ID: [id number] Quality ID # [id number]: Final reports with documentation of one or more dose reduction techniques (e.g., Au tomated exposure control, adjustment of the mA and/or kV according to patient size, use of iterative reconstruction technique) 2010 [employer]- All Rights Reserved
== END ==
LOC: RAD 07:06
PROVIDERS: ATTEND Internal Medicine Gastroenterology
DX: K59.01 Slow transit constipation (principal); K25.5 Chronic or unspecified gastric ulcer with perforation; R10.31 Right lower quadrant pain; R10.32 Left lower quadrant pain
CPT/HCPCS: 74177; 82565

== ENCOUNTER 2016-12-01 15:41 | Day surgery (SDC) | payer MEDICARE ==
[2016-12-01] MEDS ORDERED: NALOXONE HCL INJ/PF 0.4 MG/1 ML SDV ONE (15:43)
[2016-12-01] MEDS ORDERED: GLUCAGON,HUMAN RECOMB 1 MG INJ ONE (15:44)
[2016-12-01] MEDS ORDERED: EPINEPHRINE INJ 1 MG/10 ML DISP.SYRIN ONE (15:44)
[2016-12-01] MEDS ORDERED: FLUMAZENIL INJ 0.5 MG/5 ML VIAL ONE (15:44)
[2016-12-01] MEDS ORDERED: FENTANYL CITRATE INJ/PF 100 MCG/2 ML AMPUL ONE (15:44)
[2016-12-01] MEDS ORDERED: MIDAZOLAM 2 MG/2 ML INJ ONE (15:44)
--- NOTE | 2016-12-01 17:00 | PDOC DISCHARGE SUMMARY ---
Discharge Summary (SDC) - Discharge Final Diagnosis: Normal Condition: Stable Treatment or Instructions: none Discharge Diet: As Tolerated Discharge Activity: Activity As Tolerated Home Care Assistance: None Needed Report the Following to Your Physician Immediately: Shortness of Breath, Nausea , Vomiting, Swelling, Warmth, Increased Soreness
--- NOTE | 2016-12-01 17:22 | OPERATIVE REPORT E ---
Operative Report NAME: MILY GONZALEZ : 1950 AGE: 66Y DATE OF SURGERY: 12/01/2016 ROOM: PREOPERATIVE DIAGNOSIS: HISTORY OF PERFORATED GASTRIC ULCER. POSTOPERATIVE DIAGNOSIS: NORMAL EGD. OPERATION: EGD with biopsy. SURGEON: ANIVAL GRACIA M.D. MEDICATION: Versed 2 mg, fentanyl 50 mcg. TISSUE REMOVED OR ALTERED: Antral biopsy. PROCEDURE: After informed consent was obtained from the patient, conscious sedation was achieved. The upper endoscope was inserted into the esophagus and advanced into the stomach. The duodenum was normal. There was some deformity of the pyloric channel, but no ulcers were identified. Biopsy was taken from the antrum. The rest of the stomach and the esophagus were normal. The patient tolerated the procedure well. PLAN: Continue Prevacid. DICTATING PHYSICIAN: ANIVAL GRACIA M.D. [id number] PHY#: [id number] ID: [id number] JOB#: [id number] ACCT: [id number] cc:ANIVAL GRACIA M.D. >
[2016-12-01 18:02] VITALS: BP 139/72
== END 2016-12-01 18:00 | disposition home health service (06) ==
LOC: END 15:41
PROVIDERS: ATTEND Internal Medicine Gastroenterology
PROC: 0DB68ZX Excision of Stomach, Via Natural or Artificial Opening Endoscopic, Diagnostic (ICD-10-PCS; principal; 2016-12-01 16:00)
DX: K31.9 Disease of stomach and duodenum, unspecified (principal); Z09 Encounter for follow-up examination after completed treatment for conditions other than malignant neoplasm; Z87.11 Personal history of peptic ulcer disease; K21.9 Gastro-esophageal reflux disease without esophagitis; E78.5 Hyperlipidemia, unspecified; M19.90 Unspecified osteoarthritis, unspecified site; G40.909 Epilepsy, unspecified, not intractable, without status epilepticus; Z86.73 Personal history of transient ischemic attack (TIA), and cerebral infarction without residual deficits; Z79.82 Long term (current) use of aspirin; Z79.899 Other long term (current) drug therapy
CPT/HCPCS: 43239; 88305 ×2; J2250; J3010; J0171; J1610; J2310; J3490

== ENCOUNTER 2017-04-16 08:40 | Day surgery (SDC) | payer MEDICARE ==
[2017-04-06 13:37] LABS: ABSOLUTE EOSINOPHILS # (AUTO) 0.2 10^3/uL (0.0-0.6); ABSOLUTE LYMPHOCYTES (AUTO) 1.9 10^3/uL (0.5-4.7); ABSOLUTE MONOCYTES (AUTO) 0.5 10^3/uL (0.1-1.4); BASOPHILS % (AUTO) 0.7 % (0-2); EOSINOPHILS % (AUTO) 2.3 % (0-6); HEMOGLOBIN 13.9 g/dL (12.0-15.5); LYMPHOCYTES % (AUTO) 29.1 % (13-45); MEAN CORPUSCULAR HEMOGLOBIN 31.1 pg (27.0-33.4); MEAN CORPUSCULAR HGB CONC 33.9 g/dL (32.0-36.0); MEAN CORPUSCULAR VOLUME 92 fl (80-97); MONOCYTES % (AUTO) 7.3 % (3-13); PLATELET COUNT 254 10^3/uL (150-450); RED BLOOD COUNT 4.46 10^6/uL (3.72-5.28); RED CELL DISTRIBUTION WIDTH 13.2 % (11.5-14.0); SEGMENTED NEUTROPHILS % (AUTO) 60.6 % (42-78); TOTAL CELLS COUNTED % (AUTO) 100 %; WHITE BLOOD COUNT 6.6 10^3/uL (4.0-10.5)
[2017-04-07 12:30] LABS: APPEARANCE,URINE TURBID; BILIRUBIN,URINE SMALL (NEGATIVE); COLOR,URINE YELLOW; GLUCOSE, URINE NEGATIVE (NEGATIVE); KETONES,URINE NEGATIVE (NEGATIVE); LEUKOCYTE ESTERASE,URINE SMALL (NEGATIVE); NITRITE,URINE NEGATIVE (NEGATIVE); PROTEIN,URINE NEGATIVE (NEGATIVE); URINE SPECIFIC GRAVITY 1.031; UROBILINOGEN,URINE NEGATIVE mg/dL (<2.0)
[2017-04-07 12:31] LABS: AMORPHOUS SEDIMENT,URINE TRACE /HPF
[~2017-04-16 08:40] MED LIST: CLINDAMYCIN 600 MG/D5W RTU 600 MG/50 ML RTUPB IV PRN; RINGERS SOLUTION,LACTATED 1,000 ML IV PRN
[2017-04-16] MEDS ORDERED: LIDOCAINE 2% INJ (20 MG/ML) 20 ML MDV ONE (08:55)
[2017-04-16] MEDS ORDERED: BUPIVACAINE HCL 0.5 % INJ/PF 30 ML SDV ONE (08:55)
[2017-04-16] MEDS ORDERED: PROPOFOL INJ 200 MG/20 ML VIAL IV ONE (09:43)
[2017-04-16] MEDS ORDERED: ONDANSETRON HCL INJ/PF 4 MG/2 ML SDV ONE (09:43)
[2017-04-16] MEDS ORDERED: FENTANYL CITRATE INJ/PF 100 MCG/2 ML AMPUL ONE (09:43)
[2017-04-16] MEDS ORDERED: MIDAZOLAM 2 MG/2 ML INJ ONE (09:43)
--- NOTE | 2017-04-16 11:58 | [facility] OPERATIVE REPORT E ---
[facility] Operative Report NAME: MILY GONZALEZ AGE: 67Y DATE OF SURGERY: 04/16/2017 ROOM: PREOPERATIVE DIAGNOSIS: Hallux limitus, right foot. POSTOPERATIVE DIAGNOSIS: Hallux limitus, right foot. OPERATION: Cheilectomy first metatarsal head and base of proximal phalanx, right foot. SURGEON: DELORES TOMLINSON D.P.M. INTRAOPERATIVE FINDINGS: Indicated the exuberant formation of osteophytes around the head of the first metatarsal and the base of the proximal phalanx which have locked the motion of the metatarsophalangeal joint completely. Intraoperative findings were confirmed clinically and radiographically. PROCEDURE: With the patient laying in the dorsal recumbent position, the right foot and leg was prepped and draped in the usual standard sterile orthopedic manner after the local anesthesia was administered, which was a total ankle block. After the anesthetic effect was accomplished, the right leg was elevated for approximately 2 minutes of time and the right ankle pneumatic tourniquet was inflated up to 210 mmHg after the blood was exsanguinated from the right foot. Next, the right leg was brought to the level of the table. Attention was directed right over the first metatarsophalangeal joint. A curvilinear incision was placed right over the area. The incision commenced at the base of the proximal phalanx distally and extended to the distal 1/3 of the shaft of the first metatarsal proximally. The initially incision was deepened. The superficial and deep subcutaneous tissues were dissected via blunt and sharp dissection. This dissection was carried until the capsular structures were brought into the surgical field. At this point, the capsulotomy was performed and the head of the metatarsal was brought into the surgical field. At this point, the osteophytic formation around the medial, dorsal, and lateral aspect were resected en toto. Next, the osteophytes at the base of the proximal phalanx were resected as well. At this point, final evaluation was conducted. All the pressure points were neutralized and the surgical area was irrigated with copious amount of sterile saline solution. The capsular structures were closed with 2-0 Vicryl and the subcutaneous from deep to superficial were closed with 2-0 Vicryl. The skin edges were repositioned and closed with 4-0 nylon using continuous interlocked stitch. At this point, a Betadine compression dressing was applied around the right foot which follow with an MARKO bandage and a surgical shoe. This patient tolerated procedures well and left the operating room with stable vital signs and in good condition. Patient was taken to the recovery room alert, conscious, and oriented. There are no permanent disabilities anticipated at this time. The immediate postoperative recovery was also very uneventful. The patient was sent home with instructions for postoperative care at home. Patient was given pain medicine and antibiotics for about 4-5 days. Patient was instructed to keep the right foot elevated as much as possible. The patient is nonambulatory due to stroke and having hemiplegia on the right side of the body. Patient was instructed to resume regular diet and to start taking her medications as been prescribed. Again, there are no permanent disabilities anticipated at this time. DICTATING PHYSICIAN: DELORES TOMLINSON D.P.M. [id number] PHY#: [id number] ID: [id number] JOB#: [id number] ACCT: [id number] cc:DELORES TOMLINSON D.P.M. >
== END 2017-04-16 12:05 | disposition home or self-care (01) ==
LOC: SC 08:40
PROVIDERS: ATTEND Podiatrist Foot & Ankle Surgery
PROC: 0QSQ0ZZ Reposition Right Toe Phalanx, Open Approach (ICD-10-PCS; 2017-04-16)
PROC: 0QSN0ZZ Reposition Right Metatarsal, Open Approach (ICD-10-PCS; principal; 2017-04-16 09:15)
DX: M20.5X1 Other deformities of toe(s) (acquired), right foot (principal); I10 Essential (primary) hypertension; G40.909 Epilepsy, unspecified, not intractable, without status epilepticus; K21.9 Gastro-esophageal reflux disease without esophagitis; D64.9 Anemia, unspecified; Z88.0 Allergy status to penicillin; Z79.82 Long term (current) use of aspirin; Z86.73 Personal history of transient ischemic attack (TIA), and cerebral infarction without residual deficits
CPT/HCPCS: 36415; 85025; 81001; 28289; J2250; J3490; J3010; J2405; J2704; 1480

== ENCOUNTER → 2017-06-01 | Outpatient (CLI) | payer MEDICARE ==
--- NOTE | 2017-06-01 16:17 | RADIOLOGY REPORT (SQ) ---
EXAM DESCRIPTION: FOOT RIGHT COMPLETE COMPLETED DATE/TIME: 06/01/2017 3:13 pm REASON FOR STUDY: ANKYLOSIS, RIGHT FOOT M24.674 ANKYLOSIS, RIGHT FOOT COMPARISON: Right foot films 12/12/2015 NUMBER OF VIEWS: Three views. TECHNIQUE: AP, lateral and oblique radiographic images acquired of the right foot. LIMITATIONS: None. FINDINGS: MINERALIZATION: Osteopenic BONES: Since the prior films from 12/12/2015, patient has had bunion corrective surgery at the 1st meta tarsophalangeal joint. No fracture. No lytic or blastic lesions. No bony overgrowth at the joint spaces. Whole hammertoe corrective surgery pinky toe, similar compared to 12/12/2015. JOINTS: Bunion corrective surgery 1st metatarsophalangeal joint without bony fusion SOFT TISSUES: Mild soft tissue swelling over the forefoot OTHER: No other significant finding. IMPRESSION: Soft tissue swelling over the forefoot. Since prior study 12/12/2015 patient has undergone bunion corrective surgery at the 1st metatarsophalan geal joint. TECHNICAL DOCUMENTATION: JOB ID: [id number] [employer]- All Rights Reserved Reading location - IP/workstation name: [email or web address]
== END ==
LOC: OD 14:51
PROVIDERS: ATTEND Internal Medicine
DX: M24.674 Ankylosis, right foot (principal)

== ENCOUNTER 2017-10-25 15:30 | Emergency (ER) | payer MEDICARE ==
--- NOTE | 2017-10-25 16:20 | RADIOLOGY REPORT (SQ) ---
EXAM DESCRIPTION: CT HEAD WITHOUT COMPLETED DATE/TIME: 10/25/2017 4:11 pm REASON FOR STUDY: [place] R/O stroke, Hx previous stroke COMPARISON: 09/23/2016. TECHNIQUE: Axial images acquired through the brain without intravenous contrast. Images reviewed wi th bone, brain and subdural windows. Additional sagittal and coronal reconstructions were generated. Images stored on PACS. All CT scanners at this facility use dose modulation, iterative reconstruction, and/or weight based d osing when appropriate to reduce radiation dose to as low as reasonably achievable (ALARA). [facility]: Dose Right [facility]: CareDose [facility]: Dose Right [facility]: Teradose 4D [facility]: [employer] RADIATION DOSE: CT Rad equipment meets quality standard of care and radiation dose reduction techniq ues were employed. CTDIvol: 53.2 mGy. DLP: 991 mGy-cm. mGy. LIMITATIONS: None. FINDINGS: VENTRICLES: Normal size and contour. CEREBRUM: No masses. No hemorrhage. No midline shift. No evidence for acute infarction. Normal gra y/white matter differentiation. Stable old left frontal lobe infarct. No areas of low density in th e white matter. CEREBELLUM: No masses. No hemorrhage. No alteration of density. No evidence for acute infarction. EXTRAAXIAL SPACES: No fluid collections. No masses. ORBITS AND GLOBE: No intra- or extraconal masses. Normal contour of globe without masses. CALVARIUM: No fracture. PARANASAL SINUSES: No fluid or mucosal thickening. SOFT TISSUES: No mass or hematoma. OTHER: No other significant finding. IMPRESSION: STABLE OLD LEFT FRONTAL LOBE INFARCT. NO ACUTE FINDINGS. EVIDENCE OF ACUTE STROKE: NO. COMMENT: Quality ID # 436: Final reports with documentation of one or more dose reduction techniques (e.g., Automated exposure control, adjustment of the mA and/or kV according to patient size, use of iterative reconstruction technique) TECHNICAL DOCUMENTATION: JOB ID: [id number] [employer]- All Rights Reserved Reading location - IP/workstation name: [email or web address]
--- NOTE | 2017-10-25 16:22 | RADIOLOGY REPORT (SQ) ---
EXAM DESCRIPTION: CHEST SINGLE VIEW COMPLETED DATE/TIME: 10/25/2017 4:13 pm REASON FOR STUDY: RO stroke alert protocol COMPARISON: 09/23/2016. EXAM PARAMETERS: NUMBER OF VIEWS: One view. TECHNIQUE: Single frontal radiographic view of the chest acquired. RADIATION DOSE: NA LIMITATIONS: None. FINDINGS: LUNGS AND PLEURA: No opacities, masses or pneumothorax. No pleural effusion. MEDIASTINUM AND HILAR STRUCTURES: No masses. Contour normal. HEART AND VASCULAR STRUCTURES: Heart normal in size. Normal vasculature. BONES: No acute findings. HARDWARE: None in the chest. OTHER: No other significant finding. IMPRESSION: NO ACUTE RADIOGRAPHIC FINDING IN THE CHEST. TECHNICAL DOCUMENTATION: JOB ID: [id number] [employer]- All Rights Reserved Reading location - IP/workstation name: [email or web address]
--- NOTE | 2017-10-25 17:02 | ER Document Report ---
ED General - General Chief Complaint: Headache Stated Complaint: HEADACHE Time Seen by Provider: 10/25/17 16:59 Mode of Arrival: Medic Information source: Patient Notes: This is a 67-year-old female with a history of hemorrhagic stroke (right hemiparesis) who is referred to [facility] because of right-sided headache. Family is opening patient and there is clear concerns for recurrent stroke. Patient states that the headache comes and goes states that it was right-sided. TRAVEL OUTSIDE OF THE [place] IN LAST 30 DAYS: No - HPI Onset: Just prior to arrival Onset/Duration: Sudden Quality of pain: Dull Severity: Moderate Pain Level: 2 Associated symptoms: denies: Chest pain, Fever, Nausea, Vomiting, Shortness of breath Exacerbated by: Denies Relieved by: Denies Similar symptoms previously: Yes Recently seen / treated by doctor: No - Related Data Allergies/Adverse Reactions: Penicillins Allergy (Mild, Verified 12/01/16 15:49) Generalized rash Past Medical History - General Information source: Patient - Social History Smoking Status: Unknown if Ever Smoked Cigarette use (# per day): No Chew tobacco use (# tins/day): No Frequency of alcohol use: None Drug Abuse: None Lives with: Alf Family History: CAD, Other Patient has suicidal ideation: No Patient has homicidal ideation: No - Past Medical History Cardiac Medical History: Reports: Hx Hypercholesterolemia, Hx Hypertension, Hx Peripheral Vascular Disease Denies: Hx Coronary Artery Disease, Hx Heart Attack Pulmonary Medical History: Reports: Hx Pneumonia Denies: Hx Asthma, Hx Bronchitis, Hx COPD Neurological Medical History: Reports: Hx Cerebrovascular Accident - x3 no use of right side, difficulty speaking. Denies: Hx Seizures Renal/ Medical History: Denies: Hx Peritoneal Dialysis GI Medical History: Reports: Hx Ulcer - HAD SURGERY. Denies: Hx Hepatitis, Hx Hiatal Hernia Musculoskeletal Medical History: Reports Hx Arthritis Psychiatric Medical History: Denies: Hx Depression Infectious Medical History: Denies: Hx Hepatitis Past Surgical History: Reports: Hx Abdominal Surgery - hernia repair, Hx Orthopedic Surgery - Carpal tunnel surgery, Other - Mian patch and the drainage for gastric ulcer perforation in 02/2016. Denies: Hx Hysterectomy, Hx Mastectomy, Hx Open Heart Surgery, Hx Pacemaker - Immunizations Hx Diphtheria, Pertussis, Tetanus Vaccination: No Review of Systems - Review of Systems Constitutional: denies: Chills, Fever EENT: No symptoms reported Cardiovascular: No symptoms reported Respiratory: No symptoms reported Gastrointestinal: No symptoms reported Genitourinary: No symptoms reported Female Genitourinary: No symptoms reported Musculoskeletal: No symptoms reported Skin: No symptoms reported Hematologic/Lymphatic: No symptoms reported Neurological/Psychological: See HPI Physical Exam - Vital signs Vitals: Temp Pulse BP Pulse Ox 99.0 F 65 108/79 99 10/25/17 15:36 10/25/17 15:36 10/25/17 15:36 10/25/17 15:36 Notes: Physical exam: GENERAL: HEAD: Atraumatic, normocephalic. EYES: Pupils equal round and reactive to light, extraocular movements intact, sclera anicteric, conjunctiva are normal. ENT: TMs normal, nares patent, oropharynx clear without exudates. Moist mucous membranes. NECK: Normal range of motion, supple without obvious mass or JVD. LUNGS: Breath sounds clear to auscultation bilaterally and equal. No wheezes rales or rhonchi. HEART: Regular rate and rhythm without murmurs, rubs or gallops. ABDOMEN: Soft, normoactive bowel sounds. No tenderness to palpation. No guarding, no rebound. No masses appreciated. EXTREMITIES: Normal range of motion, no pitting or edema. No clubbing or cyanosis. NEUROLOGICAL: GCS is 15. She does have some dysphasia which is chronic. She does have right-sided hemiparesis at baseline. Patient is able to remove the left upper and lower extremities. PSYCH: Normal mood, normal affect. SKIN: Warm, Dry, normal turgor, no rashes or lesions noted. Course - Re-evaluation Re-evalutation: 10/26/17 00:08 Patient looks quite good on exam. Her headache is gone. I did give her some Tylenol. By report, her neurologic exam seems quite at baseline. Given her history of intracranial bleed, I reassured the patient she did the right thing by getting checked out. I do not think she is having an acute thrombotic or hemorrhagic event however. She looks quite good right now and I will give her good instructions to go home with. - Vital Signs Vital signs: Temp Pulse Resp BP Pulse Ox 98 F 71 16 117/65 96 10/25/17 20:10 10/25/17 20:10 10/25/17 20:10 10/25/17 20:10 10/25/17 20:10 - Laboratory Result Diagrams: 10/25/17 17:48 10/25/17 17:48 Laboratory results interpreted by me: 10/25/17 17:48 AST 37 H - Diagnostic Test Radiology reviewed: Image reviewed, Reports reviewed - CT of the head shows no acute bleed. No extension of the stroke. Discharge - Discharge Clinical Impression: Headache Condition: Stable Disposition: HOME, SELF-CARE Additional Instructions: As we discussed, the CT showed no extension of the stroke, no evidence of new stroke and no bleeding. The chest x-ray was clear. Lab work looked very good. Continue current medicines. Tylenol for headache. Follow-up with your primary care doctor at the facility. I provided the results of the tests of the CAT scan, chest x-ray and lab results with the discharge for the records at the facility. Return to the emergency room for worsening headache or any concerns or getting worse. Referrals: NOEMI JOE MD [Primary Care Provider] - Follow up as needed
[2017-10-25 17:59] LABS: ABSOLUTE EOSINOPHILS # (AUTO) 0.1 10^3/uL (0.0-0.6); ABSOLUTE LYMPHOCYTES (AUTO) 2.1 10^3/uL (0.5-4.7); ABSOLUTE MONOCYTES (AUTO) 0.5 10^3/uL (0.1-1.4); ABSOLUTE NEUT (AUTO) 3.6 10^3/uL (1.7-8.2); BASOPHILS % (AUTO) 0.6 % (0-2); HEMATOCRIT 36.4 % (36.0-47.0); HEMOGLOBIN 12.6 g/dL (12.0-15.5); LYMPHOCYTES % (AUTO) 33.5 % (13-45); MEAN CORPUSCULAR HEMOGLOBIN 31.4 pg (27.0-33.4); MEAN CORPUSCULAR HGB CONC 34.7 g/dL (32.0-36.0); MEAN CORPUSCULAR VOLUME 91 fl (80-97); MONOCYTES % (AUTO) 7.5 % (3-13); PLATELET COUNT 231 10^3/uL (150-450); RED BLOOD COUNT 4.03 10^6/uL (3.72-5.28); SEGMENTED NEUTROPHILS % (AUTO) 56.4 % (42-78); TOTAL CELLS COUNTED % (AUTO) 100 %; WHITE BLOOD COUNT 6.3 10^3/uL (4.0-10.5)
[2017-10-25 18:31] LABS: ALANINE AMINOTRANSFERASE 43 U/L (9-52); ALBUMIN 4.1 g/dL (3.5-5.0); ALKALINE PHOSPHATASE 92 U/L (38-126); ANION GAP 12 (5-19); ASPARTATE AMINO TRANSFERASE 37 U/L (14-36); BILIRUBIN,DIRECT 0.3 mg/dL (0.0-0.4); BILIRUBIN,TOTAL 0.4 mg/dL (0.2-1.3); BLOOD UREA NITROGEN 19 mg/dL (7-20); CALCIUM 9.7 mg/dL (8.4-10.2); CARBON DIOXIDE 29 mmol/L (22-30); CHLORIDE 103 mmol/L (98-107); GLUCOSE 96 mg/dL (75-110); POTASSIUM 4.6 mmol/L (3.6-5.0); SODIUM 143.8 mmol/L (137-145)
[2017-10-25] MEDS ORDERED: ACETAMINOPHEN 325 MG TABLET PO ONE (18:40)
[2017-10-25 20:12] VITALS: BP 117/65
== END 2017-10-25 20:12 | disposition home or self-care (01) ==
LOC: ER 15:30
DX: R51 Headache (principal); I69.351 Hemiplegia and hemiparesis following cerebral infarction affecting right dominant side; R13.10 Dysphagia, unspecified; I10 Essential (primary) hypertension; Z88.0 Allergy status to penicillin
CPT/HCPCS: 99285; 36415; 85025; 80053; 71045; 70450; A9270

== ENCOUNTER 2018-05-30 10:56 | Observation (INO) | payer MEDICARE ==
[2018-05-30 11:50] LABS: ALANINE AMINOTRANSFERASE 47 U/L (9-52); ALBUMIN 4.1 g/dL (3.5-5.0); ALKALINE PHOSPHATASE 87 U/L (38-126); ANION GAP 8 (5-19); ASPARTATE AMINO TRANSFERASE 36 U/L (14-36); BILIRUBIN,DIRECT 0.2 mg/dL (0.0-0.4); BILIRUBIN,TOTAL 0.5 mg/dL (0.2-1.3); BLOOD UREA NITROGEN 18 mg/dL (7-20); CALCIUM 9.4 mg/dL (8.4-10.2); CARBON DIOXIDE 28 mmol/L (22-30); CHLORIDE 106 mmol/L (98-107); GLUCOSE 104 mg/dL (75-110); POTASSIUM 4.5 mmol/L (3.6-5.0); SODIUM 142.3 mmol/L (137-145); TOTAL PROTEIN 6.7 g/dL (6.3-8.2)
[2018-05-30 11:51] LABS: ALCOHOL < 10 mg/dL (NONE DETECTED)
[2018-05-30 12:01] LABS: ABSOLUTE EOSINOPHILS # (AUTO) 0.2 10^3/uL (0.0-0.6); ABSOLUTE MONOCYTES (AUTO) 0.5 10^3/uL (0.1-1.4); ABSOLUTE NEUT (AUTO) 3.5 10^3/uL (1.7-8.2); BASOPHILS % (AUTO) 0.7 % (0-2); EOSINOPHILS % (AUTO) 3.4 % (0-6); HEMATOCRIT 36.2 % (36.0-47.0); HEMOGLOBIN 12.3 g/dL (12.0-15.5); LYMPHOCYTES % (AUTO) 31.5 % (13-45); MEAN CORPUSCULAR HEMOGLOBIN 30.8 pg (27.0-33.4); MEAN CORPUSCULAR HGB CONC 34.1 g/dL (32.0-36.0); MEAN CORPUSCULAR VOLUME 90 fl (80-97); MONOCYTES % (AUTO) 8.7 % (3-13); PLATELET COUNT 225 10^3/uL (150-450); RED BLOOD COUNT 4.01 10^6/uL (3.72-5.28); RED CELL DISTRIBUTION WIDTH 13.6 % (11.5-14.0); SEGMENTED NEUTROPHILS % (AUTO) 55.7 % (42-78); TOTAL CELLS COUNTED % (AUTO) 100 %; WHITE BLOOD COUNT 6.2 10^3/uL (4.0-10.5)
[2018-05-30 13:38] LABS: APPEARANCE,URINE CLEAR; BILIRUBIN,URINE NEGATIVE (NEGATIVE); COLOR,URINE YELLOW; GLUCOSE, URINE NEGATIVE (NEGATIVE); KETONES,URINE NEGATIVE (NEGATIVE); LEUKOCYTE ESTERASE,URINE SMALL (NEGATIVE); NITRITE,URINE NEGATIVE (NEGATIVE); PROTEIN,URINE NEGATIVE (NEGATIVE); URINE SPECIFIC GRAVITY 1.015; UROBILINOGEN,URINE NEGATIVE mg/dL (<2.0)
--- NOTE | 2018-05-30 14:00 | RADIOLOGY REPORT (SQ) ---
EXAM DESCRIPTION: CT HEAD WITHOUT COMPLETED DATE/TIME: 05/30/2018 1:35 pm REASON FOR STUDY: change in [place] COMPARISON: 10/25/2017 TECHNIQUE: Axial images acquired through the brain without intravenous contrast. Images reviewed wi th bone, brain and subdural windows. Additional sagittal and coronal reconstructions were generated. Images stored on PACS. All CT scanners at this facility use dose modulation, iterative reconstruction, and/or weight based d osing when appropriate to reduce radiation dose to as low as reasonably achievable (ALARA). [facility]: Dose Right [facility]: CareDose [facility]: Dose Right [facility]: Teradose 4D [facility]: Snip.ly RADIATION DOSE: CT Rad equipment meets quality standard of care and radiation dose reduction techniq ues were employed. CTDIvol: 53.2 mGy. DLP: 1097 mGy-cm.mGy. LIMITATIONS: None. FINDINGS: VENTRICLES: Prominent. CEREBRUM: No masses. No hemorrhage. No midline shift. Chronic large left frontal lobe infarct. No evidence for acute infarction. CEREBELLUM: No masses. No hemorrhage. No alteration of density. No evidence for acute infarction. EXTRAAXIAL SPACES: Age-related involutional change. No fluid collections. No masses. ORBITS AND GLOBE: No intra- or extraconal masses. Normal contour of globe without masses. CALVARIUM: No fracture. PARANASAL SINUSES: No fluid or mucosal thickening. SOFT TISSUES: No mass or hematoma. OTHER: No other significant finding. IMPRESSION: Old left frontal lobe infarct. No acute findings. EVIDENCE OF ACUTE STROKE: NO. TECHNICAL DOCUMENTATION: JOB ID: [id number] Quality ID # [id number]: Final reports with documentation of one or more dose reduction techniques (e.g., Au tomated exposure control, adjustment of the mA and/or kV according to patient size, use of iterative reconstruction technique) 2010 [employer]- All Rights Reserved Reading location - IP/workstation name: [email or web address]
[2018-05-30] MEDS ORDERED: ASPIRIN 325 MG TABLET PO ONE (14:31)
--- NOTE | 2018-05-30 14:44 | ER Document Report ---
ED Neuro Symptoms/Deficit - General Chief Complaint: Altered Mental Status Stated Complaint: ALTERED MENTAL STATUS Time Seen by Provider: 05/30/18 14:10 Primary Care Provider: NOEMI JOE MD [Primary Care Provider] - Follow up as needed TRAVEL OUTSIDE OF THE [place] IN LAST 30 DAYS: No - HPI Notes: Patient is a 68 year old female that presents to the emergency department for chief complaint of strokelike symptoms. Patient was last seen normal yesterday. Patient's weosrbay-cr-aob is at bedside giving most of the history. She states that she talk to her on the phone at ar ound 930 this morning and patient was having a hard time communicating. She was not able to come up with words she was trying to. This is new compared to previous. She does have a history of strokes with chronic right-sided weakness. She has had a phase here with previous strokes that had resolved prior to today. She does usually have very mild slurring of her words. Patient has a difficult time speaking which is limiting HPI from her. She did complain of a headache but is unable to give me further details. She has not taken any of her home medications including her aspirin yet today. Patient's family states that her right arm and leg usually have minimal movement however they appear more contracted today. Patient also complaining of new blindness in the left eye Past Medical History: stroke, HLD Past Surgical History: Reviewed in chart Social History: denies tobacco and alcohol Family History: Reviewed and noncontributory for presenting illness Allergies: Reviewed, see documented allergy list. REVIEW OF SYSTEMS: CONSTITUTIONAL : No fever No chills No diaphoresis No recent illness EENT: vision changes No congestion No sore throat CARDIOVASCULAR: No chest pain No palpitations RESPIRATORY: No shortness of breath No cough No difficulty breathing GASTROINTESTINAL: No abdominal pain No nausea No vomiting No diarrhea GENITOURINARY: No dysuria No hematuria No difficulty urinating MUSCULOSKELETAL: No back pain No leg pain No arm pain SKIN: No rashes No lesions LYMPHATIC: No swollen, enlarged glands. NEUROLOGICAL: No lightheadedness headache weakness difficulty speaking No paresthesias PSYCHIATRIC: No anxiety No depression PHYSICAL EXAMINATION: Vital signs reviewed, nursing noted reviewed. GENERAL: mildly diaphoretic, well-nourished and in no acute distress. HEAD: Atraumatic, normocephalic. EYES: Eyes appear normal, extraocular movements intact, sclera anicteric, conjunctiva are normal. Left eye complete blindness ENT: nares patent, oropharynx clear without exudates. Moist mucous membranes. NECK: Normal range of motion, supple without lymphadenopathy LUNGS: Breath sounds clear to auscultation bilaterally and equal. No wheezes rales or rhonchi. HEART: Regular rate and rhythm without murmurs ABDOMEN: Soft, nontender, normoactive bowel sounds. No rebound, guarding, or rigidity. No masses appreciated. EXTREMITIES: Trace pretibial edema bilaterally. Right upper and lower extremity contractions with minimal range of motion. Normal left upper and lower extremity range of motion. Right foot tenderness NEUROLOGICAL: NIH=16, contraction of right upper and lower extremity, expressive aphasia, dysarthria PSYCH: Normal mood, normal affect. SKIN: Warm, Dry, normal turgor, no rashes or lesions noted on exposed skin - Related Data Allergies/Adverse Reactions: Penicillins Allergy (Mild, Verified 12/01/16 15:49) Generalized rash Past Medical History - Social History Smoking Status: Former Smoker Frequency of alcohol use: None Drug Abuse: None Family History: CAD, Other Patient has suicidal ideation: No Patient has homicidal ideation: No - Past Medical History Cardiac Medical History: Reports: Hx Hypercholesterolemia, Hx Hypertension, Hx Peripheral Vascular Disease Denies: Hx Coronary Artery Disease, Hx Heart Attack Pulmonary Medical History: Reports: Hx Pneumonia Denies: Hx Asthma, Hx Bronchitis, Hx COPD Neurological Medical History: Reports: Hx Cerebrovascular Accident - x3 no use of right side, difficulty speaking, Hx Seizures Renal/ Medical History: Denies: Hx Peritoneal Dialysis GI Medical History: Reports: Hx Ulcer - HAD SURGERY. Denies: Hx Hepatitis, Hx Hiatal Hernia Musculoskeletal Medical History: Reports Hx Arthritis Psychiatric Medical History: Reports: Hx Depression Infectious Medical History: Denies: Hx Hepatitis Past Surgical History: Reports: Hx Abdominal Surgery - hernia repair, Hx Orthopedic Surgery - Carpal tunnel surgery, Other - Mian patch and the drainage for gastric ulcer perforation in 02/2016. Denies: Hx Hysterectomy, Hx Mastectomy, Hx Open Heart Surgery, Hx Pacemaker - Immunizations Hx Diphtheria, Pertussis, Tetanus Vaccination: No Physical Exam - Vital signs Vitals: Pulse Ox 95 05/30/18 11:08 Course - Re-evaluation Re-evalutation: 05/30/18 14:44 Vitals reviewed. Nursing notes reviewed. Patient's CT scan shows no acute intracranial pathology. Her current NIH is 16 however her last known normal was yesterday. Patient was known to be altered at 930 this morning which is 5 hours prior to my evaluation of her. For these reason she is not a TPA candidate. Her EKG shows no STEMI. Her lab work is unremarkable. She will be admitted to the hospital for telemetry monitoring and further stroke evaluation. Case discussed with Mariella Salas who accepts admission. Laboratory 05/30/18 05/30/18 05/30/18 11:19 11:19 11:19 WBC 6.2 RBC 4.01 Hgb 12.3 Hct 36.2 MCV 90 MCH 30.8 MCHC 34.1 RDW 13.6 Plt Count 225 Seg Neutrophils % 55.7 Lymphocytes % 31.5 Monocytes % 8.7 Eosinophils % 3.4 Basophils % 0.7 Absolute Neutrophils 3.5 Absolute Lymphocytes 2.0 Absolute Monocytes 0.5 Absolute Eosinophils 0.2 Absolute Basophils 0.0 Sodium 142.3 Potassium 4.5 Chloride 106 Carbon Dioxide 28 Anion Gap 8 BUN 18 Creatinine 0.84 Est GFR ( Amer) > 60 Est GFR (Non-Af Amer) > 60 Glucose 104 Calcium 9.4 Magnesium 2.2 Total Bilirubin 0.5 Direct Bilirubin 0.2 Neonat Total Bilirubin Not Reportable Neonat Direct Bilirubin Not Reportable Neonat Indirect Bili Not Reportable AST 36 ALT 47 Alkaline Phosphatase 87 Troponin I < 0.012 Total Protein 6.7 Albumin 4.1 Urine Color Urine Appearance Urine pH Ur Specific [place] Urine Protein Urine Glucose (UA) Urine Ketones Urine Blood Urine Nitrite Urine Bilirubin Urine Urobilinogen Ur Leukocyte Esterase Urine WBC (Auto) Urine RBC (Auto) Squamous Epi Cells Auto Urine Mucus (Auto) Urine Ascorbic Acid Serum Alcohol < 10 05/30/18 13:18 WBC RBC Hgb Hct MCV MCH MCHC RDW Plt Count Seg Neutrophils % Lymphocytes % Monocytes % Eosinophils % Basophils % Absolute Neutrophils Absolute Lymphocytes Absolute Monocytes Absolute Eosinophils Absolute Basophils Sodium Potassium Chloride Carbon Dioxide Anion Gap BUN Creatinine Est GFR ( Amer) Est GFR (Non-Af Amer) Glucose Calcium Magnesium Total Bilirubin Direct Bilirubin Neonat Total Bilirubin Neonat Direct Bilirubin Neonat Indirect Bili AST ALT Alkaline Phosphatase Troponin I Total Protein Albumin Urine Color YELLOW Urine Appearance CLEAR Urine pH 5.0 Ur Specific [place] 1.015 Urine Protein NEGATIVE Urine Glucose (UA) NEGATIVE Urine Ketones NEGATIVE Urine Blood NEGATIVE Urine Nitrite NEGATIVE Urine Bilirubin NEGATIVE Urine Urobilinogen NEGATIVE Ur Leukocyte Esterase SMALL H Urine WBC (Auto) 10 Urine RBC (Auto) 2 Squamous Epi Cells Auto <1 Urine Mucus (Auto) RARE Urine Ascorbic Acid NEGATIVE Serum Alcohol Head CT 05/30/18 12:54 IMPRESSION: Old left frontal lobe infarct. No acute findings. EVIDENCE OF ACUTE STROKE: NO. - Vital Signs Vital signs: Temp Pulse Resp BP Pulse Ox 98.3 F 61 13 144/77 H 98 05/30/18 11:12 05/30/18 11:22 05/30/18 11:22 05/30/18 11:22 05/30/18 11:22 - Laboratory Result Diagrams: 05/30/18 11:19 05/30/18 11:19 Laboratory results interpreted by me: 05/30/18 13:18 Ur Leukocyte Esterase SMALL H - EKG Interpretation by Me Additional EKG results interpreted by me: 05/30/18 14:46 Interpreted by myself [id number]: Normal sinus rhythm, rate 58, normal axis, no STEMI, no ectopy Discharge - Discharge Clinical Impression: Stroke-like symptoms, Blind left eye, Expressive aphasia, Dysarthria Condition: Stable Disposition: ADMITTED INPATIENT Admitting Provider: Hospitalist Unit Admitted: Telemetry Referrals: NOEMI JOE MD [Primary Care Provider] - Follow up as needed ED NIH Stroke Scale - NIH Stroke Scale When completed:: Before Alteplase *: 1. NIH scale should be completed with appropriate accompanying assessment tools. *: 2. The NIH should reflect what the patient is capable of doing and should not be coached by the clinician. 1a. Level of Consciousness: 0=Alert;keenly responsive -: 1=Drowsy -: 2=Obtunded -: 3=Coma/unresponsive or reflex to noxious stimuli. 1a. Responses: 1 1b. Orientation Questions: a. What month is it? -: b. How old are you? -: 0=Answers both questions correctly. -: 1=Answers one question correctly or patient is intubated or has orotracheal trauma. -: 2=Answers neither question correctly. 1b. Responses: 1 1c. Response to commands: a. Open and close eyes? -: b. Process Development Technician and release hand? -: Credit is given despite weakness. Demonstration of task is permitted. Substitute command if hands cannot be used. -: 0=Performs both tasks correctly -: 1=Performs one task correctly -: 2=Performs neither task correctly 1c. Responses: 0 2. Gaze: Establish eye contact and instruct patient to "Follow my finger" -: 0=Normal -: 1=Partial gaze palsy. Gaze is abnormal in one or both eyes, but where forced deviation or total gaze paresis is not present. -: 2=Forced deviation or total gaze paresis. 2. Responses: 0 3. Visual Pablo: Sees fingers in all four quadrants. -: 0=No visual loss. -: 1=Partial hemianopsia. -: 2=Complete hemianopsia. -: 3=Bilateral hemianopsia (including Cortical blindness) 3. Responses: 2 4. Facial Movement: Instruct patient to: -: a. Show me your teeth -: b. Raise your eyebrows -: c. Close your eyes -: d. Smile -: 0=Normal symmetrical movement -: 1=Minor paralysis (flattened nasolabial fold, asymmetry on smiling). -: 2=Partial paralysis (total or near total paralysis of lower face). -: 3=Complete paralysis of upper and lower face 4. Responses: 1 5. Motor functions (left arm): Alternate sides and extend each arm with palms down (90 degrees if sitting or 45 degrees for supine). -: 0=No drift;limb holds for full 10 seconds. -: 1=Drift; limb holds but drifts down before full 10 seconds, but does not hit bed. -: 2=Some effort against gravity; limb cannot get to or maintain position. -: 3=No effort against gravity; limb falls. -: 4=No movement. -: UN=Amputation, joint fusion, explain in comments. 5. Responses (left arm): 0 5. Motor Functions (right arm): Alternate sides and extend each arm with palms down (90 degrees if sitting or 45 degrees for supine). -: 0=No drift;limb holds for full 10 seconds. -: 1=Drift; limb holds but drifts down before full 10 seconds, but does not hit bed. -: 2=Some effort against gravity; limb cannot get to or maintain position. -: 3=No effort against gravity; limb falls. -: 4=No movement. -: UN=Amputation, joint fusion, explain in comments. 5. Responses (right arm): 4 6. Motor Functions (left leg): With patient lying supine, alternate sides and extend each leg (30 degrees always while supine). -: 0=No drift, leg holds position for full 5 seconds -: 1=Drift; leg falls before full 5 seconds but does not hit bed. -: 2=Some effort against gravity, leg falls to bed but some effort against gravity. -: 3=No effort against gravity, leg falls to bed immediately. -: 4=No movement. -: UN=Amputation, joint fusion; explain in comments. 6. Responses (left leg): 0 6. Motor Functions (right leg): With patient lying supine, alternate sides and extend each leg (30 degrees always while supine). -: 0=No drift, leg holds position for full 5 seconds -: 1=Drift; leg falls before full 5 seconds but does not hit bed. -: 2=Some effort against gravity, leg falls to bed but some effort against gravity. -: 3=No effort against gravity, leg falls to bed immediately. -: 4=No movement. -: UN=Amputation, joint fusion; explain in comments. 6. Responses (right leg): 4 7. Limb Ataxia: With eyes open instruct patient to: -: a. "Touch your finger to your nose". -: b. "Touch your heel to your orourke" -: 0=Absent -: 1=Present in one limb. -: 2=Present in two limbs. -: UN=Amputation or joint fusion; explain in comments. 7. Responses: 0 8. Sensory: Test sensation using pinprick or noxious stimuli. Test as many body parts as possible. -: 0=Normal;no sensory loss -: 1=Mile to moderate sensory loss (patient feels pin prick but is less sharp on affected side). -: 2=Severe or total sensory loss. 8. Responses: 0 9. Best Language: Instruct patient to: -: a. "Describe what you see in this picture." -: b. "Name the items in this picture." -: c. "Read these sentences." -: 0=No aphasia, normal -: 1=Mild to moderate aphasia. -: 2=Severe aphasia -: 3=Mute, global aphasia, no usable speech or auditory comprehension. 9. Responses: 2 10. Articulation, Dysarthia: Instruct patient to: -: "Read these words" or "Repeat these words" -: 0=Normal -: 1=Mild to moderate; patient may slur some words but can be understood without difficulty. -: 2=Severe; patients speech so slurred as to be unintelligible in the absence of dysphasia. -: UN=Intubated or other physical barrier, explain in comments. 10. Responses: 1 11. Extinction or inattention: 0=No abnormality -: 1= Visual, tactile, auditory, spatial, or personal inattention or extinction to bilateral simulation in one or the sensory modalities. -: 2=Profound nury-inattention or nury-inattention to more than one modality; does not recognize own hand. Total Score: 16
[2018-05-30] MEDS ORDERED: DEXTROSE 40% GEL 15 GM TUBE PO PRN ×2 (15:44)
[2018-05-30] MEDS ORDERED: DOCUSATE SODIUM 100 MG CAPSULE PO PRN (15:44)
[2018-05-30] MEDS ORDERED: ONDANSETRON 4 MG TAB.RAPDIS PO PRN (15:44)
[2018-05-30] MEDS ORDERED: DEXTROSE 50%-WATER 25 GM/50 ML DISP.SYRIN IV PRN ×2 (15:44)
[2018-05-30] MEDS ORDERED: ACETAMINOPHEN 325 MG TABLET PO PRN (15:44)
[2018-05-30] MEDS ORDERED: GLUCAGON,HUMAN RECOMB 1 MG INJ SUBCUT PRN (15:44)
[2018-05-30] MEDS ORDERED: HYDRALAZINE HCL INJ/PF 20 MG/1 ML SDV IV PRN (15:51)
[2018-05-30] MEDS ORDERED: METOPROLOL TARTRATE PF/INJ 5 MG/5 ML SDV IV PRN (15:51)
--- NOTE | 2018-05-30 17:32 | PDOC H&P ---
History of Present Illness Admission Date/PCP: 05/30/18 14:54 NOEMI LOVEGERMAN Patient complains of: STROKE-LIKE SYMPTOMS History of Present Illness: MILY GONZALEZ is a 68 year old female with a OMH of CVA (residual right-sided deficits ) and HLD. [facility] presented [facility] for stroke-like symptoms. The patient comes from a assisted facility. Unknown when she was last seen at baseline. According to [id number], she called the patient this morning at 0930 and noted that the patient was exhibiting times of expressive aphasia and dysarthria. Upon arrival to the emergency department, CT head shows old left frontal lobe infarct, no acute findings. Laboratory studies completely benign, including CBC, chemistry and cardiac enzymes. EKG shows NSR, no evidence of acute infarct or ischemia. T wave abnormalities in septal leads. Upon assessment, the patient is awake alert and oriented. She is able to answer questions appropriately but her speech is somewhat slurred. There is little evidence of a right-sided facial droop. RUE is contracted but sensation intact. RLE is hyperextended strength 0/5, sensation intact. LUE and LLE 5/5 strength a nd sensation intact. Patient states she does not ambulate, gets around in a wheelchair. The patient reports L eye blurry vision but states it is not new, it is a residual symptom of her previous stroke. Plan to admit to [facility] for stroke workup. Past Medical History Cardiac Medical History: Reports: Hyperlipidema, Hypertension, Peripheral Vascular Disease Denies: Coronary Artery Disease, Myocardial Infarction Pulmonary Medical History: Reports: Pneumonia Denies: Asthma, Bronchitis, Chronic Obstructive Pulmonary Disease (COPD) Neurological Medical History: Reports: Seizures GI Medical History: Denies: Hepatitis, Hiatal Hernia Musculoskeltal Medical History: Reports: Arthritis Psychiatric Medical History: Reports: Depression Hematology: Denies: Anemia, Sickle Cell Disease Past Surgical History Past Surgical History: Reports: Orthopedic Surgery - Carpal tunnel surgery, Other - Mian patch and the drainage for gastric ulcer perforation in 02/2016 Denies: Amputation, Hysterectomy, Mastectomy, Pacemaker Social History Smoking Status: Former Smoker Frequency of Alcohol Use: None Hx Recreational Drug Use: No Drugs: None Hx Prescription Drug Abuse: No - Advance Directive Resuscitation Status: Do Not Resuscitate Family History Family History: CAD, Other Parental Family History Reviewed: No Children Family History Reviewed: Unknown Sibling(s) Family History Reviewed.: Unknown Medication/Allergy Home Medications: Ascorbic Acid [Vitamin C] 1,000 mg PO DAILY 09/24/16 Aspirin [Aspirin 81 mg Chewable Tablet] 81 mg PO BID 09/24/16 Atorvastatin Calcium [Lipitor 40 mg Tablet] 40 mg PO DAILY 09/24/16 Docusate Sodium [Colace 100 mg Capsule] 100 mg PO BID #60 capsule 09/24/16 Ezetimibe [Zetia 10 mg Tablet] 10 mg PO QPM 09/24/16 Ferrous Sulfate [Feosol 325 mg Tablet] 325 mg PO DAILY 09/24/16 Folic Acid 800 mcg PO DAILY 09/24/16 Lansoprazole [Prevacid] 30 mg PO QAM 09/24/16 Levetiracetam [Keppra] 1,000 mg PO Q12 09/24/16 Lidocaine [Lidoderm 5% (700 mg) Transdermal Patch] 1 patch TP DAILY 09/24/16 Oxycodone HCl [Oxycodone HCl 10 MG Tablet] 5 - 10 mg PO QIDP PRN 09/24/16 Paroxetine HCl [Paxil] 20 mg PO QAM 09/24/16 Trazodone HCl [Desyrel 50 mg Tablet] 50 mg PO QHS 09/24/16 Cholecalciferol (Vitamin D3) [Vitamin D3 1000 Unit Tablet] 1,000 unit PO DAILY 12/01/16 Duloxetine HCl 30 mg PO QHS 12/01/16 Multivitamin [Animal Shapes] 1 each PO BID 12/01/16 Gabapentin 300 mg PO TID 04/15/17 Methocarbamol [Robaxin 500 mg Tablet] 500 mg PO QID 04/15/17 Allergies/Adverse Reactions: Penicillins Allergy (Mild, Verified 12/01/16 15:49) Generalized rash Review of Systems ROS unobtainable: Due to mental status Physical Exam Vital Signs: Temp Pulse Resp BP Pulse Ox 98.3 F 61 13 144/76 H 94 05/30/18 11:12 05/30/18 11:22 05/30/18 16:01 05/30/18 16:01 05/30/18 16:01 Intake & Output 05/29/18 05/30/18 05/31/18 06:59 06:59 06:59 Weight 75.8 kg General appearance: PRESENT: no acute distress, well-developed, well-nourished Head exam: PRESENT: atraumatic Eye exam: PRESENT: conjunctiva pink Mouth exam: PRESENT: moist, tongue midline, other - EXPRESSIVE APHASIA. DYSARTHRIA. Neck exam: PRESENT: full ROM Respiratory exam: PRESENT: clear to auscultation caitlin, symmetrical, unlabored Cardiovascular exam: PRESENT: RRR Pulses: PRESENT: normal radial pulses - L NORMAL RADIAL PULSE. R +1 RADIAL PULSE, +1 pedal pulses bilateral Vascular exam: PRESENT: normal capillary refill GI/Abdominal exam: PRESENT: soft. ABSENT: distended, tenderness Rectal exam: PRESENT: deferred Extremities exam: ABSENT: full ROM - RUE CONTRACTED. RLE 0/5. LUE AND LLE 5/5, pedal edema Musculoskeletal exam: ABSENT: ambulatory - WHEELCHAIR, full ROM, normal inspection - HYPEREXTENSION OF R ANKLE. CONTRACTION OF RUE Neurological exam: PRESENT: awake, oriented to person, oriented to place, oriented to time, oriented to situation Skin exam: PRESENT: dry, intact, normal color Results Laboratory Results: 05/30/18 11:19 05/30/18 11:19 05/30/18 05/30/18 05/30/18 11:19 11:19 13:18 WBC 6.2 RBC 4.01 Hgb 12.3 Hct 36.2 MCV 90 MCH 30.8 MCHC 34.1 RDW 13.6 Plt Count 225 Seg Neutrophils % 55.7 Lymphocytes % 31.5 Monocytes % 8.7 Eosinophils % 3.4 Basophils % 0.7 Absolute Neutrophils 3.5 Absolute Lymphocytes 2.0 Absolute Monocytes 0.5 Absolute Eosinophils 0.2 Absolute Basophils 0.0 Sodium 142.3 Potassium 4.5 Chloride 106 Carbon Dioxide 28 Anion Gap 8 BUN 18 Creatinine 0.84 Est GFR ( Amer) > 60 Est GFR (Non-Af Amer) > 60 Glucose 104 Calcium 9.4 Magnesium 2.2 Total Bilirubin 0.5 AST 36 ALT 47 Alkaline Phosphatase 87 Total Protein 6.7 Albumin 4.1 Urine Color YELLOW Urine Appearance CLEAR Urine pH 5.0 Ur Specific [place] 1.015 Urine Protein NEGATIVE Urine Glucose (UA) NEGATIVE Urine Ketones NEGATIVE Urine Blood NEGATIVE Urine Nitrite NEGATIVE Ur Leukocyte Esterase SMALL H Urine WBC (Auto) 10 Urine RBC (Auto) 2 05/30/18 11:19 Troponin I < 0.012 Impressions: Head CT 05/30/18 12:54 IMPRESSION: Old left frontal lobe infarct. No acute findings. EVIDENCE OF ACUTE STROKE: NO. Status: Imported from PACS Assessment & Plan - Diagnosis (1) Stroke-like symptoms Is this a current diagnosis for this admission?: Yes Plan: Unknown 'last normal' time Hx L MCA infarct CVA 2013 with right-sided deficits and L eye blurry vision Presents today with worsening R sided deficits CT scan only shows old left frontal lobe infarct Plan for MRI/MRA head and MRA neck Aspirin 81 mg p.o. daily Atorvastatin 40mg PO daily Speech therapy consult PT OT consult (2) DNR (do not resuscitate) Is this a current diagnosis for this admission?: Yes (3) HLD (hyperlipidemia) Is this a current diagnosis for this admission?: Yes Plan: H HLD Continue home dose zetia and statin - Time Time Spent: 30 to 50 Minutes Anticipated discharge: SNF Within: within 48 hours - Inpatient Certification Based on my medical assessment, after consideration of the patient's comorbidities, presenting symptoms, or acuity I expect that the services needed warrant INPATIENT care.: Yes I certify that my determination is in accordance with my understanding of Medicare's requirements for reasonable and necessary INPATIENT services [42 CFR 412.3e].: Yes Medical Necessity: Risk of Complication if Not Cared For in Hospital
--- NOTE | 2018-05-30 20:35 | RADIOLOGY REPORT (SQ) ---
MR BRAIN WITHOUT IV CONTRAST MR BRAIN ANGIOGRAPHY WITHOUT IV CONTRAST MR NECK ANGIOGRAPHY WITHOUT IV CONTRAST HISTORY: Altered mental status. COMPARISON: Multiple studies dating back to 12/20/2013. TECHNIQUE: Multisequence, multiplanar MR imaging of the brain was performed without the administration of intravenous gadolinium. MR angiography of the head and neck was performed without the administration of intravenous gadolinium. FINDINGS: MRI: There is a large area of encephalomalacia in the left frontoparietal region with surrounding gliosis. There is no acute infarction, intracranial hemorrhage, extra-axial fluid collection, or mass. The brainstem, posterior fossa, and cervicomedullary junction are preserved. The orbits are unremarkable. No abnormality of the skull base or calvarium is seen. MRA: The anterior and posterior cerebral circulations are patent. No hemodynamically significant stenosis, aneurysmal dilatation or dissection is seen. No focal aneurysm is identified. There is complete loss of flow-related signal within the left internal carotid artery with reconstitution of signal within the supraclinoid left ICA, also seen on prior study. No hemodynamically significant stenosis of the common carotid, carotid bifurcation, or internal carotid arteries is seen. The extracranial portions of the vertebral basilar system are preserved without stenosis. No aneurysmal dilatation or dissection is seen. IMPRESSION: 1. No acute intracranial findings. 2. Chronic left MCA territory infarction. 3. 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
[2018-05-30] MEDS: FAMOTIDINE 20 MG TABLET PO SCH (23:14)
[2018-05-31 06:32] LABS: ABSOLUTE BASOPHILS # (AUTO) 0.1 10^3/uL (0.0-0.2); ABSOLUTE EOSINOPHILS # (AUTO) 0.2 10^3/uL (0.0-0.6); ABSOLUTE LYMPHOCYTES (AUTO) 2.5 10^3/uL (0.5-4.7); ABSOLUTE MONOCYTES (AUTO) 0.6 10^3/uL (0.1-1.4); ABSOLUTE NEUT (AUTO) 3.3 10^3/uL (1.7-8.2); BASOPHILS % (AUTO) 1.1 % (0-2); EOSINOPHILS % (AUTO) 3.5 % (0-6); HEMATOCRIT 35.3 % (36.0-47.0); HEMOGLOBIN 12.3 g/dL (12.0-15.5); LYMPHOCYTES % (AUTO) 37.5 % (13-45); MEAN CORPUSCULAR HEMOGLOBIN 30.7 pg (27.0-33.4); MEAN CORPUSCULAR HGB CONC 34.8 g/dL (32.0-36.0); MEAN CORPUSCULAR VOLUME 88 fl (80-97); MONOCYTES % (AUTO) 8.6 % (3-13); PLATELET COUNT 213 10^3/uL (150-450); RED BLOOD COUNT 3.99 10^6/uL (3.72-5.28); RED CELL DISTRIBUTION WIDTH 13.1 % (11.5-14.0); SEGMENTED NEUTROPHILS % (AUTO) 49.3 % (42-78); TOTAL CELLS COUNTED % (AUTO) 100 %; WHITE BLOOD COUNT 6.6 10^3/uL (4.0-10.5)
[2018-05-31 06:49] LABS: ALANINE AMINOTRANSFERASE 42 U/L (9-52); ALBUMIN 3.8 g/dL (3.5-5.0); ALKALINE PHOSPHATASE 95 U/L (38-126); ANION GAP 7 (5-19); ASPARTATE AMINO TRANSFERASE 32 U/L (14-36); BILIRUBIN,DIRECT 0.1 mg/dL (0.0-0.4); BILIRUBIN,TOTAL 0.4 mg/dL (0.2-1.3); BLOOD UREA NITROGEN 19 mg/dL (7-20); CALCIUM 9.5 mg/dL (8.4-10.2); CARBON DIOXIDE 28 mmol/L (22-30); CHLORIDE 106 mmol/L (98-107); CHOLESTEROL 150.93 mg/dL (0-200); GLUCOSE 96 mg/dL (75-110); SODIUM 140.7 mmol/L (137-145); TOTAL PROTEIN 6.2 g/dL (6.3-8.2); TRIGLYCERIDES 259 mg/dL (<150)
[2018-05-31 07:00] LABS: DIRECT LDL 74 mg/dL (<100)
[2018-05-31 07:09] LABS: VLDL CHOLESTEROL 51.8 mg/dL (10-31)
[2018-05-31] MEDS ORDERED: ASPIRIN 81 MG TABLET, ENT COATED PO SCH (10:00)
[2018-05-31] MEDS: FAMOTIDINE 20 MG TABLET PO SCH ×2 (10:03→21:19)
[2018-05-31] MEDS: ENOXAPARIN SODIUM INJ 40 MG/0.4 ML DISP.SYRIN SUBCUT SCH (10:03)
[2018-05-31] MEDS ORDERED: OXYCODONE HCL IR 5 MG TABLET PO PRN (11:32)
[2018-05-31] MEDS: CETIRIZINE 10 MG TABLET PO SCH (13:16)
[2018-05-31] MEDS: GABAPENTIN 100 MG CAPSULE PO SCH ×2 (13:16→21:19)
[2018-05-31] MEDS ORDERED: KETOROLAC TROMETHAMINE INJ/PF 30 MG/1 ML SDV IV PRN (16:47)
[2018-05-31] MEDS: TRAZODONE HCL 50 MG TABLET PO SCH (21:19)
[2018-05-31] MEDS: ATORVASTATIN CALCIUM 80 MG TABLET PO SCH (21:19)
[2018-05-31] MEDS: LEVETIRACETAM 500 MG TABLET PO SCH (21:19)
[2018-05-31] MEDS: MELATONIN 5 MG TABLET PO SCH (21:20)
[2018-05-31] MEDS ORDERED: (PENDING PHARMACY ID) (Levetiracetam [Keppra] 1,000 MG) PO SCH (22:00)
[2018-05-31] MEDS ORDERED: QUETIAPINE FUMARATE 100 MG TABLET PO SCH (22:00)
[2018-05-31] MEDS ORDERED: (PENDING PHARMACY ID) (Quetiapine Fumarate [Seroquel] 50 MG) PO SCH (22:00)
[2018-06-01] MEDS ORDERED: OXYCODONE HCL IR 5 MG TABLET PO PRN (04:53)
[2018-06-01] MEDS ORDERED: NORMAL SALINE 1000 ML 1,000 ML IV ONE ×2 (05:00→06:30)
[2018-06-01] MEDS: LANSOPRAZOLE 30 MG TAB.RAP.DR PO SCH (05:39)
[2018-06-01] MEDS: GABAPENTIN 100 MG CAPSULE PO SCH ×3 (05:39→22:44)
[2018-06-01] MEDS ORDERED: (PENDING PHARMACY ID) (Lansoprazole [Prevacid] 30 MG) PO SCH (06:00)
[2018-06-01] MEDS: ASPIRIN 81 MG TABLET, ENT COATED PO SCH (10:12)
[2018-06-01] MEDS: LEVETIRACETAM 500 MG TABLET PO SCH ×2 (10:12→22:42)
[2018-06-01] MEDS: CETIRIZINE 10 MG TABLET PO SCH (10:13)
[2018-06-01] MEDS: FAMOTIDINE 20 MG TABLET PO SCH ×2 (10:13→22:43)
[2018-06-01] MEDS: PAROXETINE HCL 20 MG TABLET PO SCH (10:13)
[2018-06-01] MEDS: ENOXAPARIN SODIUM INJ 40 MG/0.4 ML DISP.SYRIN SUBCUT SCH (10:18)
--- NOTE | 2018-06-01 10:33 | EKG REPORT ---
SEVERITY:- BORDERLINE ECG - SINUS RHYTHM BORDERLINE T ABNORMALITIES, ANTERIOR LEADS : Confirmed by: Gloria Weaver 01-Jun-2018 10:33:38
--- NOTE | 2018-06-01 14:08 | PDOC DISCHARGE SUMMARY ---
Addendum entered and electronically signed by MINDI SALMERON NP-C 06/03/18 12:24: Provider Note Provider Note: Addendum: Patient is discharged to [facility] in stable condition at her baseline mental and functional status. Actual day of discharge is today, 06/03/17. Original Note: General - Admit/Disc Date/PCP Admission Date/Primary Care Provider: 05/30/18 14:54 NOEMI JOE Discharge Date: 05/31/18 - Discharge Diagnosis (1) Stroke-like symptoms Is this a current diagnosis for this admission?: Yes Summary: Patient presented from SNF with unknown last normal time. On presentation had slightly worsened right-sided deficits but quickly returned to baseline per patient. She does have a history of left MCA infarct CVA 2013 with right-sided deficits, left eye blurry vision, and expressive aphasia. Head CT demonstrated old left frontal lobe infarct without acute findings. Head MRI/MRI was negative for acute intracranial findings. Did demonstrate chronic left MCA territory infarction with chronic occlusion of the left ICA with reconstitution of flow near the [place]. Neck MRA as above. EKG and continuous monitoring on cardiac telemetry demonstrated sinus rhythm only. Lipid panel is acceptable, A1c 5.7%, Troponins normal Keppra level pending (send out; do not anticipate results for another 2-3 days) The patient was admitted to [facility] on continuous cardiac telemetry. TIA/CVA workup as noted above. PT/OT/ST evaluations completed. PT/OT have signed off as the patient has returned to her baseline functional status. Recommend continuing daily aspirin and atorvastatin therapy. No indications for chronic anticoagulation at this time. May consider outpatient event monitoring. Would also recommend consideration of decreasing doses of sedating medications (trazodone, Seroquel, melatonin, oxycodone, gabapentin, Keppra). The patient is discontinued to SNF at her baseline functional status. Recommend follow-up with her primary care provider within 1 week. Return to the emergency department for any concerning symptoms. (2) Expressive aphasia Is this a current diagnosis for this admission?: Yes Summary: History of waxing and waning expressive aphasia related to her previous CVA. Patient reports that she is at her baseline functional status. Workup as above. (3) HLD (hyperlipidemia) Is this a current diagnosis for this admission?: Yes Summary: Lipid panel reveals HDL 25, LDL 74, triglycerides 259, total cholesterol 150. Recommend cardiac diet and continue daily statin therapy. (4) CVA (cerebral infarction) Is this a current diagnosis for this admission?: Yes Summary: History of left MCA territory CVA with residual right-sided hemiparesis, left eye blurred vision, and expressive aphasia. (5) DNR (do not resuscitate) Is this a current diagnosis for this admission?: Yes - Additional Information Resuscitation Status: Do Not Resuscitate Discharge Diet: Cardiac Discharge Activity: Activity As Tolerated, Slowly Increase Activity, Supervised Activity Home Medications: Ascorbic Acid [Vitamin C] 1,000 mg PO DAILY 09/24/16 Cholecalciferol (Vitamin D3) [Vitamin D3 1000 Unit Tablet] 1,000 unit PO DAILY 12/01/16 Acetaminophen [Tylenol Extra Strength 500 mg Tablet] 500 mg PO Q12HP PRN 05/30/18 Calcium Carbonate/Vitamin D3 [Calcium 600-Vit D3 400 Tablet] 2 each PO DAILY Triamcinolone Acetonide [Aristocort 0.1% Cream] 1 applic TP BIDP PRN 05/30/18 Acetaminophen [Tylenol 325 mg Tablet] 650 mg PO Q4HP PRN tablet 05/31/18 Atorvastatin Calcium [Lipitor 80 mg Tablet] 80 mg PO QHS tablet 05/31/18 Cetirizine HCl [Zyrtec 10 mg Tablet] 10 mg PO DAILY tablet 05/31/18 Docusate Sodium [Colace 100 mg Capsule] 100 mg PO BIDP PRN capsule 05/31/18 Gabapentin [Neurontin 100 mg Capsule] 100 mg PO Q8 capsule 05/31/18 Lansoprazole [Prevacid 30 mg Odt Tablet] 30 mg PO Q6AM tab.rap.dr 05/31/18 Levetiracetam [Keppra 500 mg Tablet] 1,000 mg PO Q12 tablet 05/31/18 Melatonin [Melatonin 5 mg Tablet] 5 mg PO QHS tablet 05/31/18 Oxycodone HCl [Oxy-Ir 5 mg Tablet] 5 mg PO Q12HP PRN tablet 05/31/18 Paroxetine HCl [Paxil 20 mg Tablet] 50 mg PO DAILY tablet 05/31/18 Quetiapine Fumarate [Seroquel 100 mg Tablet] 50 mg PO QHS tablet 05/31/18 Trazodone HCl [Desyrel 50 mg Tablet] 75 mg PO QHS tablet 05/31/18 History of Present Illness History of Present Illness: H&P per Henrry Salas NP: MILYJeffrey GONZALEZ is a 68 year old female with a OMH of CVA (residual right-sided deficits ) and HLD. She presented to [facility] for stroke-like symptoms. The patient comes from a halfway facility. Unknown when she was last seen at baseline. According to [id number], she called the patient this morning at 0930 and noted that the patient was exhibiting times of expressive aphasia and dysarthria. Upon arrival to the emergency department, CT head shows old left frontal lobe infarct, no acute findings. Laboratory studies completely benign, including CBC, chemistry and cardiac enzymes. EKG shows NSR, no evidence of acute infarct or ischemia. T wave abnormalities in septal leads. Upon assessment, the patient is awake alert and oriented. She is able to answer questions appropriately but her speech is somewhat slurred. There is little evidence of a right-sided facial droop. RUE is contracted but sensation intact. RLE is hyperextended strength 0/5, sensation intact. LUE and LLE 5/5 strength and sensation intact. Patient states she does not ambulate, gets around in a wheelchair. The patient reports L eye blurry vision but states it is not new, it is a residual symptom of her previous stroke. Plan to admit to [facility] for stroke workup. Physical Exam Vital Signs: Temp Pulse Resp BP Pulse Ox 98.0 F 70 16 141/68 H 98 06/01/18 11:54 06/01/18 12:00 06/01/18 12:00 06/01/18 12:00 06/01/18 12:00 Intake & Output 05/31/18 06/01/18 06/02/18 06:59 06:59 06:59 Intake Total 1268 1000 Output Total 0 Balance 1268 1000 Weight 73.2 kg 73.3 kg General appearance: PRESENT: no acute distress, cooperative, well-developed, well-nourished Head exam: PRESENT: atraumatic, normocephalic Eye exam: PRESENT: conjunctiva pink, EOMI, PERRLA. ABSENT: scleral icterus Mouth exam: PRESENT: moist, tongue midline Neck exam: ABSENT: carotid bruit, JVD, lymphadenopathy, thyromegaly Respiratory exam: PRESENT: clear to auscultation caitlin, symmetrical, unlabored. ABSENT: rales, rhonchi, wheezes Cardiovascular exam: PRESENT: RRR. ABSENT: diastolic murmur, rubs, systolic murmur Pulses: PRESENT: +1 pedal pulses bilateral Vascular exam: PRESENT: normal capillary refill GI/Abdominal exam: PRESENT: normal bowel sounds, soft. ABSENT: distended, guarding, mass, organolmegaly, rebound, tenderness Rectal exam: PRESENT: deferred Extremities exam: PRESENT: pedal edema - trace, other - RUE contracture, RLE 0/5. LUE 5/5, LLE 5/5. ABSENT: calf tenderness, clubbing Musculoskeletal exam: ABSENT: ambulatory - Utilizes elecctric wheelchair at baseline Neurological exam: PRESENT: alert, awake, oriented to person, oriented to place, oriented to situation, CN II-XII grossly intact, other - Expressive aphasia; clearly communicates questions/needs. ABSENT: oriented to time, motor sensory deficit Psychiatric exam: PRESENT: appropriate affect, normal mood. ABSENT: homicidal ideation, suicidal ideation Skin exam: PRESENT: dry, intact, warm. ABSENT: cyanosis, rash Results Laboratory Results: 05/31/18 05:51 05/31/18 05:51 05/30/18 11:19 Troponin I < 0.012 Impressions: Head CT 05/30/18 12:54 IMPRESSION: Old left frontal lobe infarct. No acute findings. EVIDENCE OF ACUTE STROKE: NO. Brain MRI with MRA 05/30/18 15:47 IMPRESSION: 1. No acute intracranial findings. 2. Chronic left MCA territory infarction. 3. Chronic occlusion of the left ICA with reconstitution of flow near the [place]. Head MRI 05/30/18 15:47 IMPRESSION: 1. No acute intracranial findings. 2. Chronic left MCA territory infarction. 3. Chronic occlusion of the left ICA with reconstitution of flow near the [place]. Neck MRA 05/30/18 15:47 IMPRESSION: 1. No acute intracranial findings. 2. Chronic left MCA territory infarction. 3. Chronic occlusion of the left ICA with reconstitution of flow near the [place]. Qualifiers - * PATIENT BEING DISCHARGED WITH ANY OF THE FOLLOWING DIAGNOSIS: Stroke Stroke Pt being discharged on Anti-thrombolytic therapy?: Yes Stroke Pt being discharged on Anti-coagulation therapy?: No Reason(s) for not prescribing Anti-coagulation therapy:: Not indicated Stroke Pt being discharged on Statins?: Yes Plan Discharge Plan: Discharge to assisted living; patient is a current resident of [facility]. Time Spent: Less than 30 Minutes
--- NOTE | 2018-06-01 16:00 | Progress Note ---
Provider Note Provider Note: MILY GONZALEZ is a 68 year old female with a OMH of CVA (residual right-sided deficits ) and HLD who was admitted 05/30/2018 for TIA and discharged 05/31/2018 but remains in house due to placement issues. The patient's overnight events, vital signs, and nursing notes were reviewed. Spoke with the patient's nursing team today; only concern was slight hypotension noted while sleeping overnight that has improved this morning upon the patient's waking. Have decreased qHS seroquel dose; [id number] reports this is a new medication and would like to reduce dosing of potentially sedating medications as able. I have also sent off a Keppra level per the patient's [id number]'s request. This is a send out lab, we will not have the results for several days and will need to be followed up on by her outpatient/primary care provider. The patient remains in stable condition and continues to be appropriate for discharge to [facility]/SNF facility. Discharge planning is consulted to assist with disposition.
[2018-06-01] MEDS ORDERED: QUETIAPINE FUMARATE 100 MG TABLET PO SCH (22:00)
[2018-06-01] MEDS: ATORVASTATIN CALCIUM 80 MG TABLET PO SCH (22:42)
[2018-06-01] MEDS: TRAZODONE HCL 50 MG TABLET PO SCH (22:43)
[2018-06-01] MEDS: QUETIAPINE FUMARATE 25 MG TABLET PO SCH (22:50)
[2018-06-01] MEDS: MELATONIN 5 MG TABLET PO SCH (23:33)
[2018-06-02] MEDS: GABAPENTIN 100 MG CAPSULE PO SCH ×3 (05:53→21:02)
[2018-06-02] MEDS: LANSOPRAZOLE 30 MG TAB.RAP.DR PO SCH (05:53)
[2018-06-02] MEDS: CETIRIZINE 10 MG TABLET PO SCH (10:19)
[2018-06-02] MEDS: LEVETIRACETAM 500 MG TABLET PO SCH ×2 (10:19→21:02)
[2018-06-02] MEDS: FAMOTIDINE 20 MG TABLET PO SCH ×2 (10:19→21:02)
[2018-06-02] MEDS: PAROXETINE HCL 20 MG TABLET PO SCH (10:19)
[2018-06-02] MEDS: ASPIRIN 81 MG TABLET, ENT COATED PO SCH (10:19)
[2018-06-02] MEDS: ENOXAPARIN SODIUM INJ 40 MG/0.4 ML DISP.SYRIN SUBCUT SCH (10:19)
--- NOTE | 2018-06-02 13:35 | Progress Note ---
Provider Note Provider Note: MILY GONZALEZ is a 68 year old female with a OMH of CVA (residual right-sided deficits ) and HLD who was admitted 05/30/2018 for TIA and discharged 05/31/2018 but remains in house due to placement issues. The patient's overnight events, vital signs, and nursing notes were reviewed. Spoke with the patient's nursing team today; no concerns. Met with patient briefly (no exam completed); she states she is feeling well, at baseline, and has no concerns. Keppra level is still pending. This is a send out lab, we will not have the results for several days and will need to be followed up on by her outpatient/primary care provider. The patient remains in stable condition and continues to be appropriate for disc harge to [facility]/SNF facility. Discharge planning is consulted to assist with disposition.
[2018-06-02] MEDS: TRAZODONE HCL 50 MG TABLET PO SCH (21:02)
[2018-06-02] MEDS: ATORVASTATIN CALCIUM 80 MG TABLET PO SCH (21:02)
[2018-06-02] MEDS: QUETIAPINE FUMARATE 25 MG TABLET PO SCH (21:02)
[2018-06-02] MEDS: MELATONIN 5 MG TABLET PO SCH (21:02)
[2018-06-03] MEDS: LANSOPRAZOLE 30 MG TAB.RAP.DR PO SCH (06:11)
[2018-06-03] MEDS: GABAPENTIN 100 MG CAPSULE PO SCH ×2 (06:11→13:15)
[2018-06-03] MEDS: LEVETIRACETAM 500 MG TABLET PO SCH (09:45)
[2018-06-03] MEDS: FAMOTIDINE 20 MG TABLET PO SCH (09:45)
[2018-06-03] MEDS: PAROXETINE HCL 20 MG TABLET PO SCH (09:45)
[2018-06-03] MEDS: CETIRIZINE 10 MG TABLET PO SCH (09:45)
[2018-06-03] MEDS: ENOXAPARIN SODIUM INJ 40 MG/0.4 ML DISP.SYRIN SUBCUT SCH (09:45)
[2018-06-03] MEDS: ASPIRIN 81 MG TABLET, ENT COATED PO SCH (09:45)
[2018-06-03 12:08] VITALS: BP 128/61
== END 2018-06-03 15:26 ==
LOC: ER 10:56 → EH 14:54 → INTOOBSV 14:54 → 3S 18:46
PROVIDERS: ADMIT Internal Medicine; ATTEND Internal Medicine
DX: R47.1 Dysarthria and anarthria (principal); I69.320 Aphasia following cerebral infarction; I69.398 Other sequelae of cerebral infarction; H53.8 Other visual disturbances; I69.351 Hemiplegia and hemiparesis following cerebral infarction affecting right dominant side; E78.5 Hyperlipidemia, unspecified; I73.9 Peripheral vascular disease, unspecified; R56.9 Unspecified convulsions; R60.0 Localized edema; Z66 Do not resuscitate; Z79.899 Other long term (current) drug therapy; Z87.891 Personal history of nicotine dependence; Z82.49 Family history of ischemic heart disease and other diseases of the circulatory system; Z75.8 Other problems related to medical facilities and other health care; Z99.3 Dependence on wheelchair
CPT/HCPCS: 93005; 99285; 36415 ×3; 80177; 80307; 83735; 85025 ×2; 80053 ×2; 81001; 84484; 83036; 80061; 70551; 70547; 70544; 70450; 93010; 97530; 97162; 92523; 97165; A9270 ×40; J1885; J1650 ×4; J7030; J3490